=== PATIENT | male | born 1985 | race Caucasian/White ===

== ENCOUNTER 2016-12-22 10:14 | Inpatient (IN) | payer OTHER ==
[2016-12-22] MEDS ORDERED: NORMAL SALINE 10 ML SYRINGE FLUSH IVP PRN ×2 (10:20→13:09)
[2016-12-22] MEDS ORDERED: LORazepam 2 MG/1 ML VIAL IVP ONE ×2 (10:21→11:58)
[2016-12-22] MEDS ORDERED: Sodium Chloride 0.9% 1,000 ML, Magnesium Sulfate 2gm (Premix) 50 ML with Multivitamin I... IV ONE ×5 (10:22)
[2016-12-22] MEDS ORDERED: Sodium Chloride 0.9% 1,000 ML with Multivitamin Inj 10 ML, Thiamine Inj 100 MG, Folic A... IV ONE ×5 (10:30)
[2016-12-22 10:36] LABS: BASOPHILS # (AUTO) 0.09 10*3/UL; BASOPHILS % (AUTO) 0.7 % (0-1); EOSINOPHILS # (AUTO) 0.03 10*3/UL; EOSINOPHILS % (AUTO) 0.2 % (0-8); HEMATOCRIT 44.7 % (42.0-52.0); LYMPHOCYTES # (AUTO) 1.74 10*3/uL; MEAN CORPUSCULAR HEMOGLOBIN 33.2 PG (27-31); MEAN CORPUSCULAR HGB CONC 33.6 g/dL (33-37); MEAN CORPUSCULAR VOLUME 98.9 FL (80-90); MONOCYTES % (AUTO) 11.9 % (5-15); NEUTROPHILS # (AUTO) 9.98 10*3/UL; RED BLOOD COUNT 4.52 10^6/uL (4.70-6.10)
--- NOTE | 2016-12-22 10:39 | EKG ---
[address] [address] Measurements Intervals [place] Rate: 95 P: 63 NC: 140 QRS: 16 QRSD: 101 T: 46 QT: 381 QTc: 434 Interpretive Statements SINUS RHYTHM NONSPECIFIC T-WAVE ABNORMALITY No previous ECG available for comparison Electronically Signed On 12-22-16 11:01:53 MDT by Evans Davis [id number]
--- NOTE | 2016-12-22 10:40 | PDOC ---
Seizure HPI - General Chief Complaint: Drug / Alcohol Use &/or Abuse Stated Complaint: SEIZURE ACTIVITY, POSSIBLE ETOH WITHDRAWAL Date Seen by Provider: 12/22/16 Time Seen by Provider: 10:15 Source: POSITIVE: Patient, EMS Exam Limitations: POSITIVE: No limitations Nurse's Notes Reviewed & Considered: Yes EMS Report Reviewed & Considered: Verbal - History of Present Illness Initial Comments: The patient is a 31-year-old male who is brought to the emergency department by ambulance after having seizure activity at home. He apparently does have a history of alcohol abuse and admits to drinking fairly heavily recently. He reports he stopped drinking 2 days ago. This morning his dad apparently witnessed some tonic-clonic seizure activity at about 6 AM. He had another seizure just prior to EMS being called. On arrival EMS noted that the patient had bit the right side of his tongue. An IV was established and he did receive 8 mg of Zofran for nausea. On arrival here to the emergency room the patient is shaky, he is awake and alert and reports continued nausea. He denies any prior history of seizures. He does report that he has had some withdrawal symptoms when he has stopped drinking in the past. He denies any current headache or change in vision. He reports diffuse muscle aches as well as some muscle tenderness in his left shoulder. When EMS had arrived on scene he was mildly hypoxic with oxygen saturations in the upper 80s and he was placed on O2 per nasal cannula. He denies any prior medical history other than acid reflux and his only prescription medication is omeprazole. - Patient Home Medications Home Medications: Home Medications Bupropion HCl [Bupropion HCl Sr] 150 mg PO DAILY 12/22/16 Omeprazole [Prilosec] 40 mg PO DAILY 12/22/16 - Patient Allergies Allergies/Adverse Reactions: Allergies Allergy/AdvReac Type Severity Reaction Status Date / Time No Known Allergies Allergy Unverified 12/22/16 10:37 Past Medical History Past Medical History Reviewed: Other (please comment) (He states his only medical history is acid reflux.) ROS - Limitations ROS Limitations: No Limitations Constitution: DENIES: Chills, Fever Cardiovascular: DENIES: Chest Pain Respiratory: REPORTS: Denies Resp Symptoms Neurological: REPORTS: Seizure Activity, Other (Shaky). DENIES: Headache, Numbness, Weakness Gastrointestinal: REPORTS: Nausea, Vomitting. DENIES: Abdominal Pain Musculoskeletal: REPORTS: Denies MS Symptoms Eyes: REPORTS: Denies Symptoms ENT: REPORTS: Other (He bit the right side of his tongue, no active bleeding currently) Skin: DENIES: Rash Psychiatric: POSITIVE: Denies Psych Symptoms Seizure Exam - General Appearance General Appearance: POSITIVE: Anxious, Other (Very shaky) - HEENT HEENT: POSITIVE: Head Inspection Nml, Eyes Inspection Nml, Ears Inspection Nml, Other (The right side of his tongue has a bite laceration with no active bleeding, some mild swelling of the tongue noted) - Neck Neck: POSITIVE: Non Tender, Trachea Midline - Respiratory Respiratory: POSITIVE: Chest Non Tender, Breath Sounds Normal, No Respiratory Distress - Cardiovascular Cardiovascular: POSITIVE: Regular Rate and Rhythm, Heart Sounds Normal Peripheral Pulses: Dorsalis-pedis (R): 2+, Dorsalis-pedis (L): 2+ - Abdomen Abdomen: Soft: (All Quadrants), Denies Tenderness: (All Quadrants), No Distention: (All Quadrants) - Skin Skin: POSITIVE: Intact, No Rash - Extremities Extremity: Normal ROM: (All Extremities), Normal Inspection: (All Extremities) - Neuro / Psych Higher Functions: POSITIVE: Oriented x3, Speech Normal Sensorimotor: POSITIVE: No Motor Deficits, No Sensory Deficits, Other (No focal neurologic deficits, diffuse tremulousness worsened with movement) Seizure Progress - Results Reviewed by me Xrays/CTs/US Reviewed by me: Yes Discussed with Radiologist: Yes Radiology Findings: Portable chest x-ray done in the ER shows no obvious infiltrate or effusion, normal heart size per radiologist. CT scan of his head reveals no acute intra-abdominal finding, some cerebral atrophy which is more advanced for his age than usual per radiologist. Lab Results Reviewed: Yes Lab Results:: Laboratory Results 12/22/16 Range/Units 10:27 WBC 13.48 H (4.8-10.8) 10^3/uL RBC 4.52 L (4.70-6.10) 10^6/uL Hgb 15.0 (14.0-18.0) g/dL Hct 44.7 (42.0-52.0) % MCV 98.9 H (80-90) FL MCH 33.2 H (27-31) PG MCHC 33.6 (33-37) g/dL RDW Std Deviation 50.3 H (39-50) fL RDW Coeff of Mack 14.1 (11.5-14.5) % Plt Count 178 (140-350) 10*3/uL MPV 11.0 (7.4-12.2) FL Immature Gran % (Auto) 0.3 (0-5) % Neut % (Auto) 74.0 (50-80) % Lymph % (Auto) 12.9 (10-50) % [place] % (Auto) 11.9 (5-15) % Eos % (Auto) 0.2 (0-8) % Baso % (Auto) 0.7 (0-1) % Immature Gran # (Auto) 0.04 10*3/UL Neut # (Auto) 9.98 10*3/UL Lymph # (Auto) 1.74 10*3/uL [place] # (Auto) 1.60 H (0.3-0.8) 10*3/UL Eos # (Auto) 0.03 10*3/UL Baso # (Auto) 0.09 10*3/UL WBC Morphology Comment Normal morphology (NORM) Plt Morphology Comment Normal morphology (NORM) RBC Morph Comment Normal morphology (NORM) Sodium 145 (135-145) meq/L Potassium 3.0 L (3.8-5.2) meq/L Chloride 100 (98-112) meq/L Carbon Dioxide 16 L (23-33) meq/L Anion Gap 29 H (5-20) BUN 11 (7-22) mg/dL Creatinine 0.9 (0.70-1.50) mg/dL Estimated GFR > 60 (>60 ml/min/1.73m(2)) BUN/Creatinine Ratio 12.22 (6-20) Glucose 167 H (78-110) mg/dL Calculated Osmolality 302.0 H (267-292) mOsm/kg Calcium 9.9 (8.7-10.7) mg/dL Magnesium 1.1 L (1.6-2.4) mg/dL Total Bilirubin 1.8 H (0.3-1.2) mg/dL AST 326 H (21-57) IU/L ALT 173 H (21-72) IU/L Alkaline Phosphatase 118 (38-126) IU/L Total Creatine Kinase 362 H (55-170) IU/L Total Protein 8.9 H (6.1-8.0) g/dL Albumin 5.1 H (3.5-4.8) g/dL Globulin 3.8 (2.50-4.10) g/dL Albumin/Globulin Ratio 1.30 (1.3-2.0) mg/g Amylase 149 H (30-110) U/L Lipase 310 H (23-300) IU/L Serum Alcohol < 10 (0-10) mg/dL EKG Interpreted/Reviewed By Me:: Yes EKG Interpretation:: POSITIVE: Normal Sinus Rhythm, Normal Rate, Normal QRS, Normal ST/T - Patient's Progress MDM / ED Course: An IV had been established per EMS and he had already received 8 mg of Zofran prior to arrival. He was given Ativan 2 mg IV as well as a banana bag. He had no further seizure activity here in the emergency department. He had no further bleeding from the laceration to the right side of his tongue. His blood work reveals an elevated white count at 13,000 which is likely stress response. His electrolytes reveal a low potassium at 3.0 as well as a magnesium of 1.1. He is receiving 2 g of magnesium in the banana bag. He received a second dose of Ativan 2 mg IV after his head CT secondary to some increased shakiness and withdrawal symptoms. I did have a fairly long discussion with the patient's dad. He reports that he is a serious alcoholic and drinks more than what he admits. He states that he was in a 3 month treatment program a couple of years ago and relapsed immediately after his treatment. His dad reports that he has lost his job, his family and his car and is currently living with his mom. The patient's head CT does not show any acute abnormality. By history the patient has had 2 tonic-clonic seizures this morning which most likely represent alcohol withdrawal seizures. His electrolytes are out of balance and his amylase and lipase are also mildly elevated along with elevated liver enzymes. This most likely is secondary to alcohol abuse as well. At this time the patient will be admitted for further treatment. Dr. Bryan has agreed to admit the patient. Patient Care Time - Estimated PCT Patient Care Time (In Minutes): 40 Vital Signs - Recent Vital Signs Vital Signs: Vital Signs (Last 8 hours) Temp Pulse Pulse Resp BP BP Pulse Ox 12/22/16 12:16 97.3 F 91 20 139/95 12/22/16 10:20 97 F 105 H 105 H 20 120/95 120/95 96 - VS Reviewed Vital Signs Reviewed: Yes Discharge Clinical Impression: Alcohol abuse, Drug withdrawal seizure, Laceration of tongue, Hypokalemia, Hypomagnesemia, Elevated pancreatic enzyme, Elevated liver function tests Discharge Disposition: Admit to Inpatient Condition: Fair Date Decision to Admit to Inpatient: 12/22/16 Time Decision to Admit to Inpatient: 11:50
[2016-12-22 10:43] LABS: BLOOD UREA NITROGEN 11 mg/dL (7-22); BUN/CREATININE RATIO 12.22 (6-20); CALCIUM 9.9 mg/dL (8.7-10.7); EST GLOMERULAR FILTRATION > 60 (>60 ml/min/1.73m(2)); MAGNESIUM 1.1 mg/dL (1.6-2.4); SERUM ALBUMIN 5.1 g/dL (3.5-4.8)
[2016-12-22 10:47] LABS: PLATELET MORPHOLOGY COMMENT NORMAL MORPHOLOGY (NORM); RBC MORPHOLOGY COMMENT NORMAL MORPHOLOGY (NORM); WBC MORPHOLOGY COMMENT NORMAL MORPHOLOGY (NORM)
[2016-12-22 11:02] LABS: LIPASE 310 IU/L (23-300)
[2016-12-22 12:15] LABS: AMPHETAMINE SCREEN NEGATIVE (NEG); CANNABINOID SCREEN,URINE NEGATIVE (NEG); COCAINE SCREEN NEGATIVE (NEG); METHADONE URINE SCREEN NEGATIVE (NEG); METHAMPHETAMINES SCREEN,URINE NEGATIVE (NEG); OPIATE SCREEN,URINE NEGATIVE (NEG); URINE SAMPLE TYPE CLEAN CATCH URINE; URINE SPECIFIC GRAVITY - MAN 1.025
[2016-12-22] MEDS: Sodium Chloride 0.9% 1,000 ML PRIMARY IV ONE ×2 (12:20→13:51)
--- NOTE | 2016-12-22 12:44 | DI ---
CT HEAD SCAN WITHOUT IV CONTRAST, 12/22/2016 10:21 AM : Clinical History: Seizure. Previous Exam: None at this facility. Scans are obtained from the foramen magnum to the vertex without IV contrast. The fourth ventricle is of normal size, shape, position and contour. The third and lateral ventricles are mildly dilated but are otherwise normal. The ventricular dilatation is advanced for the patient' s stated age of 31 years. There are no abnormal areas of increased or decreased density. There is cer ebellar and cerebral atrophy that is advanced for the patient's stated age of 31 years. No brainstem atrophy is appreciated. There are no extracerebral mantles or shift of the midline structures. Bone w indow evaluation is normal. There is a small air-fluid level in the right maxillary sinus and this ma y represent acute sinusitis. READIN. No acute hemorrhagic or bland infarct or mass is identified. 2. There is mild ventriculomegaly and moderate cerebellar and cerebral atrophy, and these findings a re advanced for the patient's stated age of 31 years. There is no appreciable brainstem atrophy to rojas ggest chronic alcohol usage. 3. There is an air-fluid level in the right maxillary sinus that may represent acute sinusitis.
--- NOTE | 2016-12-22 12:54 | DI ---
AP CHEST X-RAY, 12/22/2016 10:30 AM : Clinical History: Seizures. Hypoxia. Previous Exam: None at this facility. There is no acute soft tissue or bony abnormality. Heart size is normal. Lungs are clear. Mediastinal structures are normal. There are no pulmonary nodules. Reading: Normal chest x-ray.
[2016-12-22] MEDS ORDERED: LIDOCAINE W/ SODIUM BICARB 0.5 ML SYR SUBD PRN (13:09)
[2016-12-22] MEDS ORDERED: ONDANSETRON 4 MG/2 ML VIAL IV PRN (13:09)
[2016-12-22] MEDS ORDERED: MAGNESIUM 400 MG/5 ML - 30 ML (MILK OF MAGNESIA) PO PRN (13:09)
[2016-12-22] MEDS ORDERED: MAG HYDROX/AL HYDROX/SIMETH 30 ML SUSP PO PRN (13:09)
[2016-12-22] MEDS ORDERED: Loperamide Tab 2 MG TABLET PO PRN (13:09)
[2016-12-22] MEDS: Diazepam Inj (ETOH withdrawal)10 MG/2 ML CARPUJECT IVP PRN ×4 (13:39→23:20)
[2016-12-22] MEDS ORDERED: DIAZEPAM 10 MG/2 ML (5 MG/1 ML) CARPUJECT IVP ONE (14:03)
--- NOTE | 2016-12-22 14:34 | PDOC ---
History and Physical - History of Present Illness Date and Time of Service: 12/22/2016, 1430 Chief Complaint: Alcohol withdrawal seizure History of Present Illness: This is a 31-year-old male that apparently has a significant problem with alcohol use/abuse and he came in having quit taking 2 days ago with 2 witnessed tonic-clonic alcohol withdrawal seizures. No family is available to collaborate the history today, and this is in discussion with the emergency room physician. He bit his tongue however. He is having tremors and tachycardia and hypertension notably on admission. He's never been through withdrawal before. He states that he drinks vodka most frequently out of his beverage choices. No nausea or vomiting or chest pain. He does complain of some throat pain over the past couple of days. He received a couple doses of Ativan in the emergency room and did very well with those, and is now being admitted in the setting of alcohol withdrawal seizure. No hallucinations at this point. Past Medical History Medical History: 1. Heavy alcohol use/probable abuse Surgical History: 1. Appendectomy Pertinent Family History: No family history of heart disease or diabetes. Past Social History: Smokes, drinks, has 2 children and is . Works as a [employer]. Tobacco Use: Current Every Day Smoker Substance Use Type: None Alcohol Use: Heavy Medication / Allergies Home Medications: Home Medications Medication Instructions Recorded Confirmed Type Bupropion HCl [Bupropion HCl Sr] 150 mg PO DAILY 12/22/16 12/22/16 History Omeprazole [Prilosec] 40 mg PO DAILY 12/22/16 12/22/16 History Allergies/Adverse Reactions: Allergies Allergy/AdvReac Type Severity Reaction Status Date / Time No Known Allergies Allergy Unverified 12/22/16 10:37 Review of Systems - Review of Systems All Systems: Reviewed & No Additional Complaints Except as Stated (I did a 12 review systems and other than that discussed in history present illness and that noted below it was negative.) - Ear/Nose Exam Ear/Nose Exam: REPORTS: Other (Complains of sore throat. Complains of neck swelling on his right side) - Mouth/Throat Mouth/Throat Exam: REPORTS: Sore Throat, Other (Denies dental pain) Exam - Vitals Vital Signs: Vital Signs Temperature 97.8 F Temperature Source Temporal Artery Scan Pulse Rate [Pulse Oximeter 104 Right] Pulse Rate 91 Respiratory Rate 20 Blood Pressure [Right Arm] 146/99 Blood Pressure 139/95 Pulse Ox 96 Oxygen Flow Rate 2 Oxygen Delivery Method Nasal Cannula Height 6 ft 1 in Weight 177 lb 12.8 oz - General General Appearance: POSITIVE: Cooperative, Disheveled Additional General Exam Details: Tachycardic, generalized tremors. - Head Head Exam: POSITIVE: Normal Inspection, Normocephalic, Atraumatic - Eye Eye Exam: POSITIVE: No Scleral Icterus - ENT ENT Exam: POSITIVE: Mucous Membranes Dry - Neck Neck Exam: POSITIVE: Normal Inspection, No Tenderness, Lymphadenopathy ( Possible lymphadenopathy on the right), No Thyromegaly - Respiratory Respiratory Exam: POSITIVE: Clear to Auscultation - Bilaterally, Breathing Non Labored, Normal to Percussion and Palpation - Cardiovascular Cardiovascular Exam: POSITIVE: No Murmur, No Clicks, No Gallops, No Rubs, Tachycardia, No JVD - GI/Abdominal GI/Abdominal Exam: POSITIVE: Normal Bowel Sounds, Non Tender, Non Distended, Soft - Rectal Rectal Exam: POSITIVE: Deferred - External Exam: POSITIVE: Deferred Exam: POSITIVE: Deferred - Extremities Extremities Exam: POSITIVE: No Clubbing Present, No Edema Present, No Cyanosis Present - Back Back Exam: POSITIVE: Normal Inspection, No CVA Tenderness - Neurological Neurological Exam: POSITIVE: Alert, No Facial Droop, Speech Intact / Clear, Moves All Extremities Equally Additional Neurological Exam Details: Tremors bilaterally - Psychiatric Psychiatric Exam: POSITIVE: Anxious, Agitated Results - Labs CBC and BMP: 12/22/16 10:27 12/22/16 10:27 Labs - Last 24 Hours: Laboratory Results 12/22/16 Range/Units 12:00 Ur Collection Type Clean catch urine U Specif Grav (Refrac) 1.025 Urine Opiates Screen Negative (NEG) Ur Buprenorphine Negative (NEG) Ur Oxycodone Screen Negative (NEG) Urine Methadone Screen Negative (NEG) Ur Propoxyphene Screen Negative (NEG) Barbiturate Screen Negative (NEG) U Tricyclic Antidepress Negative (NEG) Phencyclidine Screen Negative (NEG) Amphetamines Screen Negative (NEG) U Methamphetamines Scrn Negative (NEG) Benzodiazepines Screen Negative (NEG) Cocaine Screen Negative (NEG) U Marijuana (THC) Screen Negative (NEG) Laboratory Results 12/22/16 12/22/16 Range/Units 10:27 12:00 WBC 13.48 H (4.8-10.8) 10^3/uL RBC 4.52 L (4.70-6.10) 10^6/uL Hgb 15.0 (14.0-18.0) g/dL Hct 44.7 (42.0-52.0) % MCV 98.9 H (80-90) FL MCH 33.2 H (27-31) PG MCHC 33.6 (33-37) g/dL RDW Std Deviation 50.3 H (39-50) fL RDW Coeff of Mack 14.1 (11.5-14.5) % Plt Count 178 (140-350) 10*3/uL MPV 11.0 (7.4-12.2) FL Immature Gran % (Auto) 0.3 (0-5) % Neut % (Auto) 74.0 (50-80) % Lymph % (Auto) 12.9 (10-50) % [place] % (Auto) 11.9 (5-15) % Eos % (Auto) 0.2 (0-8) % Baso % (Auto) 0.7 (0-1) % Immature Gran # (Auto) 0.04 10*3/UL Neut # (Auto) 9.98 10*3/UL Lymph # (Auto) 1.74 10*3/uL [place] # (Auto) 1.60 H (0.3-0.8) 10*3/UL Eos # (Auto) 0.03 10*3/UL Baso # (Auto) 0.09 10*3/UL WBC Morphology Comment Normal morphology (NORM) Plt Morphology Comment Normal morphology (NORM) RBC Morph Comment Normal morphology (NORM) Sodium 145 (135-145) meq/L Potassium 3.0 L (3.8-5.2) meq/L Chloride 100 (98-112) meq/L Carbon Dioxide 16 L (23-33) meq/L Anion Gap 29 H (5-20) BUN 11 (7-22) mg/dL Creatinine 0.9 (0.70-1.50) mg/dL Estimated GFR > 60 (>60 ml/min/1.73m(2)) BUN/Creatinine Ratio 12.22 (6-20) Glucose 167 H (78-110) mg/dL Calculated Osmolality 302.0 H (267-292) mOsm/kg Calcium 9.9 (8.7-10.7) mg/dL Magnesium 1.1 L (1.6-2.4) mg/dL Total Bilirubin 1.8 H (0.3-1.2) mg/dL AST 326 H (21-57) IU/L ALT 173 H (21-72) IU/L Alkaline Phosphatase 118 (38-126) IU/L Total Creatine Kinase 362 H (55-170) IU/L Total Protein 8.9 H (6.1-8.0) g/dL Albumin 5.1 H (3.5-4.8) g/dL Globulin 3.8 (2.50-4.10) g/dL Albumin/Globulin Ratio 1.30 (1.3-2.0) mg/g Amylase 149 H (30-110) U/L Lipase 310 H (23-300) IU/L Ur Collection Type Clean catch urine U Specif Grav (Refrac) 1.025 Urine Opiates Screen Negative (NEG) Ur Buprenorphine Negative (NEG) Ur Oxycodone Screen Negative (NEG) Urine Methadone Screen Negative (NEG) Ur Propoxyphene Screen Negative (NEG) Barbiturate Screen Negative (NEG) U Tricyclic Antidepress Negative (NEG) Phencyclidine Screen Negative (NEG) Amphetamines Screen Negative (NEG) U Methamphetamines Scrn Negative (NEG) Benzodiazepines Screen Negative (NEG) Cocaine Screen Negative (NEG) U Marijuana (THC) Screen Negative (NEG) Serum Alcohol < 10 (0-10) mg/dL - EKG Data -: EKG Interpreted by Me Rate: Normal EKG Shows Normal: Sinus Rhythm - Imaging Status: Image Reviewed by Me (Chest x-ray, negative on my view. Head CT scan appeared negative for an acute bleed. Radiologist felt it might be significant for ventriculomegaly) Assessment and Plan - Patient Problems (1) Alcohol withdrawal seizure Current Visit: Yes Status: Acute Qualifiers: Complication of substance-induced condition: uncomplicated Qualified Description: Alcohol withdrawal seizure, uncomplicated Qualifier Code(s): (F10.230) Alcohol dependence with withdrawal, uncomplicated (2) Alcohol withdrawal syndrome Current Visit: Yes Status: Acute (3) Alcohol abuse Current Visit: Yes Status: Acute (4) Elevated liver function tests Current Visit: Yes Status: Acute (5) Hypokalemia Current Visit: Yes Status: Acute (6) Hypomagnesemia Current Visit: Yes Status: Acute (7) Pharyngitis Current Visit: Yes Status: Acute Qualifiers: Pharyngitis/tonsillitis etiology: unspecified etiology Qualified Description: Pharyngitis, unspecified etiology Qualifier Code(s): (J02.9) Acute pharyngitis, unspecified - Assessment / Plan Additional Assessment/Plan Details: Admit the patient. CIWA protocol, Valium, and Librium. Check labs tomorrow. Replace magnesium and potassium. Hopefully we'll be able to get a director of social work consult for [employer] life as well and work towards either intensive outpatient therapy or a residential therapy for this patient. Seizure precautions. If The patient gets worse, develops hallucinations, I may consider Precedex therapy. Check for strep throat and also get a CT scan of the neck to make sure there is no evidence of infection or other issues. Photo / Body Diagrams - Uploaded Photos Uploaded Photos:
[2016-12-22] MEDS ORDERED: Magnesium Sulfate 2gm (Premix) 2 GM in Premix 1 BAG IV ONE (14:36)
[2016-12-22] MEDS ORDERED: Potassium Chloride 20 mEq 20 MEQ in Premix 1 BAG IV ONE (14:36)
[2016-12-22] MEDS: ChlordiazePOXIDE 25mg Cap (ETOH withdrawal) PO SCH ×2 (15:42→21:00)
[2016-12-22] MEDS: ACETAMINOPHEN 500 MG TABLET PO PRN ×2 (15:42→23:57)
[2016-12-22] MEDS: MAGNESIUM OXIDE 400 MG TABLET PO SCH (21:00)
[2016-12-23] MEDS: Diazepam Inj (ETOH withdrawal)10 MG/2 ML CARPUJECT IVP PRN ×4 (03:01→23:28)
[2016-12-23 05:10] LABS: BASOPHILS # (AUTO) 0.03 10*3/UL; BASOPHILS % (AUTO) 0.4 % (0-1); EOSINOPHILS # (AUTO) 0.04 10*3/UL; EOSINOPHILS % (AUTO) 0.6 % (0-8); HEMATOCRIT 38.6 % (42.0-52.0); HEMOGLOBIN 12.9 g/dL (14.0-18.0); LYMPHOCYTES # (AUTO) 1.08 10*3/uL; MEAN CORPUSCULAR HEMOGLOBIN 33.1 PG (27-31); MEAN CORPUSCULAR HGB CONC 33.4 g/dL (33-37); MEAN PLATELET VOLUME 10.7 FL (7.4-12.2); MONOCYTES % (AUTO) 13.4 % (5-15); NEUTROPHILS # (AUTO) 4.66 10*3/UL; NEUTROPHILS % (AUTO) 69.4 % (50-80)
[2016-12-23 05:27] LABS: PLATELET MORPHOLOGY COMMENT NORMAL MORPHOLOGY (NORM); RBC MORPHOLOGY COMMENT NORMAL MORPHOLOGY (NORM); WBC MORPHOLOGY COMMENT NORMAL MORPHOLOGY (NORM)
[2016-12-23 05:58] LABS: BLOOD UREA NITROGEN 7 mg/dL (7-22); CALCIUM 8.2 mg/dL (8.7-10.7); EST GLOMERULAR FILTRATION > 60 (>60 ml/min/1.73m(2)); LIPASE 196 IU/L (23-300); MAGNESIUM 2.2 mg/dL (1.6-2.4); PHOSPHORUS 2.7 mg/dl (2.4-4.3); SERUM ALBUMIN 3.9 g/dL (3.5-4.8)
[2016-12-23] MEDS ORDERED: OMEPRAZOLE 20 MG CAPSULE PO SCH (07:00)
--- NOTE | 2016-12-23 07:09 | DI ---
CT SCAN OF THE NECK WITH IV CONTRAST, 12/22/2016 2:37 PM : Clinical History: Right-sided neck pain. Previous Exam: None at this facility. Scans are obtained from below the sternal notch to the petrous pyramids with IV contrast. Sagittal an d coronal images are generated. 95 ml of Isovue 300 was injected IV. The cervical vertebral bodies are of normal height and size. The disc spaces are normal. The carotid and vertebral arteries are normal and the left vertebral artery is the dominant vessel. There are no soft tissue masses on either side. No lymphadenopathy is identified. The thyroid gland, the submandib ular glands, and the parotid glands are normal. The visualized portions of the upper lobes are also n ormal. READING: Normal CT neck scan with IV contrast.
[2016-12-23] MEDS ORDERED: buPROPion XL Tab 150 MG TAB PO SCH (09:00)
[2016-12-23] MEDS ORDERED: Thiamine Tab 100 MG TAB PO SCH (09:00)
[2016-12-23] MEDS: MAGNESIUM OXIDE 400 MG TABLET PO SCH ×2 (09:19→20:41)
[2016-12-23] MEDS: ChlordiazePOXIDE 25mg Cap (ETOH withdrawal) PO SCH ×3 (09:19→20:41)
[2016-12-23] MEDS ORDERED: POTASSIUM CHLORIDE 20 MEQ TAB PO ONE (10:23)
--- NOTE | 2016-12-23 13:53 | PDOC(PROG) ---
Date and Time of Service: 12/23/2016, 1345 Interval History: Patient complains of right mouth pain, no chest pain and no shortness of breath. No nausea or vomiting. Still quite anxious, agitated, and has some tremors. Objective : Data - Labs CBC and BMP: 12/23/16 04:59 12/23/16 04:59 Labs - Last 24 Hours: Laboratory Results 12/23/16 Range/Units 04:59 WBC 6.72 (4.8-10.8) 10^3/uL RBC 3.90 L (4.70-6.10) 10^6/uL Hgb 12.9 L (14.0-18.0) g/dL Hct 38.6 L (42.0-52.0) % MCV 99.0 H (80-90) FL MCH 33.1 H (27-31) PG MCHC 33.4 (33-37) g/dL RDW Std Deviation 48.4 (39-50) fL RDW Coeff of Mack 13.6 (11.5-14.5) % Plt Count 114 L (140-350) 10*3/uL MPV 10.7 (7.4-12.2) FL Immature Gran % (Auto) 0.1 (0-5) % Neut % (Auto) 69.4 (50-80) % Lymph % (Auto) 16.1 (10-50) % [place] % (Auto) 13.4 (5-15) % Eos % (Auto) 0.6 (0-8) % Baso % (Auto) 0.4 (0-1) % Immature Gran # (Auto) 0.01 10*3/UL Neut # (Auto) 4.66 10*3/UL Lymph # (Auto) 1.08 10*3/uL [place] # (Auto) 0.90 H (0.3-0.8) 10*3/UL Eos # (Auto) 0.04 10*3/UL Baso # (Auto) 0.03 10*3/UL WBC Morphology Comment Normal morphology (NORM) Plt Morphology Comment Normal morphology (NORM) RBC Morph Comment Normal morphology (NORM) Sodium 139 (135-145) meq/L Potassium 2.7 L (3.8-5.2) meq/L Chloride 104 (98-112) meq/L Carbon Dioxide 25 (23-33) meq/L Anion Gap 10 (5-20) BUN 7 (7-22) mg/dL Creatinine 0.7 (0.70-1.50) mg/dL Estimated GFR > 60 (>60 ml/min/1.73m(2)) BUN/Creatinine Ratio 10.00 (6-20) Glucose 110 (78-110) mg/dL Calculated Osmolality 286.0 (267-292) mOsm/kg Calcium 8.2 L (8.7-10.7) mg/dL Phosphorus 2.7 (2.4-4.3) mg/dl Magnesium 2.2 (1.6-2.4) mg/dL Total Bilirubin 1.3 H (0.3-1.2) mg/dL AST 154 H (21-57) IU/L ALT 121 H (21-72) IU/L Alkaline Phosphatase 80 (38-126) IU/L Total Protein 7.0 (6.1-8.0) g/dL Albumin 3.9 (3.5-4.8) g/dL Globulin 3.1 (2.50-4.10) g/dL Albumin/Globulin Ratio 1.20 L (1.3-2.0) mg/g Lipase 196 (23-300) IU/L Objective : Exam - General General Appearance: No Acute Distress, Cooperative Additional General Exam Details: Vital Signs - Last Taken Temperature 98.8 F 12/23/16 09:00 Pulse Rate 94 12/23/16 09:00 Respiratory Rate 12 12/23/16 09:00 Blood Pressure 138/95 12/23/16 09:00 Pulse Ox 95 12/23/16 08:46 - Eye Eye Exam: No Scleral Icterus - ENT Additonal ENT Exam Details: Tongue is lacerated on the right side, it looks as if a portion of the tongue muscle has actually been bitten completely off laterally, but it is not actively bleeding, does not appear to be obstructive. Some swelling on that lateral side on the right. - Neck Neck Exam: Normal Inspection, No Thyromegaly - Respiratory Respiratory Exam: Clear to Auscultation - Bilaterally, Breathing Non Labored - Cardiovascular Cardiovascular Exam: RRR, No Murmur, No Clicks, No Gallops, No Rubs, No JVD - GI/Abdominal GI/Abdominal Exam: Normal Bowel Sounds, Non Tender, Non Distended, Soft - Extremities Extremities Exam: No Clubbing Present, No Edema Present, No Cyanosis Present - Neurological Neurological Exam: Alert, Oriented x 3, No Facial Droop, Speech Intact / Clear, Moves All Extremities Equally Assessment and Plan - Patient Problems (1) Alcohol withdrawal syndrome Current Visit: Yes Status: Acute Comment: Had seizure as part of his alcohol withdrawal syndrome. Not hallucinating. Qualifiers: Complication of substance-induced condition: with unspecified complication Qualified Description: Alcohol withdrawal syndrome, with unspecified complication Qualifier Code(s): (F10.239) Alcohol dependence with withdrawal, unspecified (2) Alcohol withdrawal seizure Current Visit: Yes Status: Acute Qualifiers: Complication of substance-induced condition: uncomplicated Qualified Description: Alcohol withdrawal seizure, uncomplicated Qualifier Code(s): (F10.230) Alcohol dependence with withdrawal, uncomplicated (3) Alcohol abuse Current Visit: Yes Status: Acute (4) Elevated liver function tests Current Visit: Yes Status: Acute (5) Hypokalemia Current Visit: Yes Status: Acute (6) Hypomagnesemia Current Visit: Yes Status: Acute (7) Pharyngitis Current Visit: Yes Status: Acute Qualifiers: Pharyngitis/tonsillitis etiology: unspecified etiology Qualified Description: Pharyngitis, unspecified etiology Qualifier Code(s): (J02.9) Acute pharyngitis, unspecified - Assessment / Plan Additional Assessment/Plan Details: Continue CIWA protocol and Valium and Librium. Replace potassium. IV fluids. May benefit from some chlorhexidine rinses. I'll order those. Seizure precautions. Photo / Body Diagrams - Uploaded Photos Uploaded Photos:
[2016-12-23] MEDS: ACETAMINOPHEN 500 MG TABLET PO PRN (19:46)
[2016-12-23] MEDS ORDERED: POTASSIUM CHLORIDE 20 MEQ TAB PO SCH (21:00)
[2016-12-24] MEDS: Diazepam Inj (ETOH withdrawal)10 MG/2 ML CARPUJECT IVP PRN ×9 (01:28→22:38)
[2016-12-24 05:41] LABS: HEMATOCRIT 38.2 % (42.0-52.0); HEMOGLOBIN 12.3 g/dL (14.0-18.0); MEAN CORPUSCULAR HEMOGLOBIN 32.5 PG (27-31); MEAN CORPUSCULAR HGB CONC 32.2 g/dL (33-37); MEAN CORPUSCULAR VOLUME 101.1 FL (80-90); MEAN PLATELET VOLUME 11.1 FL (7.4-12.2); RED BLOOD COUNT 3.78 10^6/uL (4.70-6.10)
[2016-12-24 05:49] LABS: BLOOD UREA NITROGEN 6 mg/dL (7-22); BUN/CREATININE RATIO 8.57 (6-20); CALCIUM 8.8 mg/dL (8.7-10.7); EST GLOMERULAR FILTRATION > 60 (>60 ml/min/1.73m(2)); MAGNESIUM 1.8 mg/dL (1.6-2.4); SERUM ALBUMIN 4.1 g/dL (3.5-4.8)
[2016-12-24] MEDS ORDERED: DIAZEPAM 10 MG/2 ML (5 MG/1 ML) CARPUJECT IVP ONE ×2 (06:13→06:34)
[2016-12-24] MEDS ORDERED: Dexmedetomidine/NS 100 ML IV ONE (06:27)
[2016-12-24] MEDS ORDERED: MAGNESIUM 400 MG/5 ML - 30 ML (MILK OF MAGNESIA) PO PRN (06:34)
[2016-12-24] MEDS ORDERED: Loperamide Tab 2 MG TABLET PO PRN (06:34)
[2016-12-24] MEDS ORDERED: ONDANSETRON 4 MG/2 ML VIAL IV PRN (06:34)
[2016-12-24] MEDS ORDERED: LIDOCAINE W/ SODIUM BICARB 0.5 ML SYR SUBD PRN (06:34)
[2016-12-24] MEDS ORDERED: DIAZEPAM 10 MG/2 ML (5 MG/1 ML) CARPUJECT IVP PRN ×2 (06:34→13:25)
[2016-12-24] MEDS ORDERED: MAG HYDROX/AL HYDROX/SIMETH 30 ML SUSP PO PRN (06:34)
[2016-12-24] MEDS: Dexmedetomidine/NS 100 ML IV SCH ×10 (06:44→16:34)
[2016-12-24] MEDS: OMEPRAZOLE 20 MG CAPSULE PO SCH (07:08)
[2016-12-24] MEDS: NORMAL SALINE 10 ML SYRINGE FLUSH IVP PRN ×2 (07:57→22:40)
[2016-12-24] MEDS: Thiamine Tab 100 MG TAB PO SCH (09:01)
[2016-12-24] MEDS: POTASSIUM CHLORIDE 20 MEQ TAB PO SCH ×2 (09:02→21:15)
[2016-12-24] MEDS: ChlordiazePOXIDE 25mg Cap (ETOH withdrawal) PO SCH ×3 (09:03→20:19)
[2016-12-24] MEDS: MAGNESIUM OXIDE 400 MG TABLET PO SCH ×2 (09:04→20:21)
[2016-12-24] MEDS: buPROPion XL Tab 150 MG TAB PO SCH (09:04)
[2016-12-24] MEDS ORDERED: Sodium Chloride 0.9% 500 ML ONE (09:13)
--- NOTE | 2016-12-24 13:25 | PDOC(PROG) ---
Date and Time of Service: 12/24/2016, 1325 Interval History: Morning, was hallucinating, did not know where he was was disoriented and agitated. We started Precedex and gave more Valium. Patient was resting at the time of my examination. Objective : Data - Labs CBC and BMP: 12/24/16 04:20 12/24/16 04:20 Labs - Last 24 Hours: Laboratory Results 12/24/16 Range/Units 04:20 WBC 6.01 (4.8-10.8) 10^3/uL RBC 3.78 L (4.70-6.10) 10^6/uL Hgb 12.3 L (14.0-18.0) g/dL Hct 38.2 L (42.0-52.0) % MCV 101.1 H (80-90) FL MCH 32.5 H (27-31) PG MCHC 32.2 L (33-37) g/dL RDW Std Deviation 47.9 (39-50) fL RDW Coeff of Mack 13.3 (11.5-14.5) % Plt Count 126 L (140-350) 10*3/uL MPV 11.1 (7.4-12.2) FL Sodium 142 (135-145) meq/L Potassium 3.6 L (3.8-5.2) meq/L Chloride 107 (98-112) meq/L Carbon Dioxide 23 (23-33) meq/L Anion Gap 12 (5-20) BUN 6 L (7-22) mg/dL Creatinine 0.7 (0.70-1.50) mg/dL Estimated GFR > 60 (>60 ml/min/1.73m(2)) BUN/Creatinine Ratio 8.57 (6-20) Glucose 88 (78-110) mg/dL Calculated Osmolality 290.0 (267-292) mOsm/kg Calcium 8.8 (8.7-10.7) mg/dL Magnesium 1.8 (1.6-2.4) mg/dL Total Bilirubin 1.0 (0.3-1.2) mg/dL AST 99 H (21-57) IU/L ALT 96 H (21-72) IU/L Alkaline Phosphatase 89 (38-126) IU/L Total Protein 7.2 (6.1-8.0) g/dL Albumin 4.1 (3.5-4.8) g/dL Globulin 3.2 (2.50-4.10) g/dL Albumin/Globulin Ratio 1.20 L (1.3-2.0) mg/g Objective : Exam - General General Appearance: Cooperative Additional General Exam Details: Sleeping on examination. - Respiratory Respiratory Exam: Clear to Auscultation - Bilaterally, Breathing Non Labored - Cardiovascular Cardiovascular Exam: RRR, No Murmur, No Clicks, No Gallops, No Rubs, JVD - GI/Abdominal GI/Abdominal Exam: Normal Bowel Sounds, Non Tender, Non Distended, Soft - Neurological Neurological Exam: No Facial Droop, Speech Intact / Clear, Moves All Extremities Equally Additional Neurological Exam Details: Resting on exam. Assessment and Plan - Patient Problems (1) Alcohol withdrawal syndrome Current Visit: Yes Status: Acute Qualifiers: Complication of substance-induced condition: with delirium Qualified Description: Alcohol withdrawal syndrome, with delirium Qualifier Code(s) : (F10.231) Alcohol dependence with withdrawal delirium (2) Alcohol withdrawal seizure Current Visit: Yes Status: Acute Qualifiers: Complication of substance-induced condition: uncomplicated Qualified Description: Alcohol withdrawal seizure, uncomplicated Qualifier Code(s): (F10.230) Alcohol dependence with withdrawal, uncomplicated (3) Alcohol abuse Current Visit: Yes Status: Acute (4) Elevated liver function tests Current Visit: Yes Status: Acute (5) Hypokalemia Current Visit: Yes Status: Acute (6) Hypomagnesemia Current Visit: Yes Status: Acute (7) Pharyngitis Current Visit: Yes Status: Resolved Qualifiers: Pharyngitis/tonsillitis etiology: unspecified etiology Qualified Description: Pharyngitis, unspecified etiology Qualifier Code(s): (J02.9) Acute pharyngitis, unspecified (8) Tongue laceration Current Visit: Yes Status: Acute Qualifiers: Encounter type: initial encounter Qualified Description: Laceration of tongue, initial encounter Qualifier Code(s): (S01.512A) Laceration without foreign body of oral cavity, initial encounter - Assessment / Plan Additional Assessment/Plan Details: Overall, the patient is developing worsened alcohol withdrawal, consistent with delirium tremens. Precedex was started, Valium is increased, in CIWA protocol is still taking place. I transferred the patient to the ICU status. Replace potassium Eventually to ENT for outpatient evaluation for tongue laceration. Discussed with the family in depth yesterday regarding alcohol cessation, counseling options, Alcoholics Anonymous, and risks of continued alcohol abuse. Try to minimize stimuli for the patient today given his worsening withdrawal symptoms.
[2016-12-24] MEDS ORDERED: LIDOCAINE HCL 5 ML JEL TOPICAL ONE (14:28)
[2016-12-24] MEDS ORDERED: LIDOCAINE HCL 2 % 10 ML JELLY URO-JECT TOPICAL ONE (14:33)
[2016-12-24] MEDS ORDERED: CloNIDine Tab 0.1 MG TABLET PO ONE (15:43)
[2016-12-24] MEDS ORDERED: CloNIDine Tab 0.1 MG TABLET PO PRN (15:43)
[2016-12-24] MEDS: ACETAMINOPHEN 500 MG TABLET PO PRN (20:20)
[2016-12-24] MEDS ORDERED: Potassium Chloride 20 mEq 20 MEQ in Premix 1 BAG IV ONE (21:55)
[2016-12-25] MEDS: Diazepam Inj (ETOH withdrawal)10 MG/2 ML CARPUJECT IVP PRN ×4 (01:02→08:59)
[2016-12-25] MEDS: NORMAL SALINE 10 ML SYRINGE FLUSH IVP PRN ×3 (01:03→09:01)
[2016-12-25] MEDS: LABETALOL 20 MG/4 ML (5 MG/1 ML) SYRINGE IVP PRN ×2 (01:03→04:55)
[2016-12-25] MEDS: DIAZEPAM 10 MG/2 ML (5 MG/1 ML) CARPUJECT IVP PRN ×3 (02:50→09:58)
[2016-12-25] MEDS ORDERED: LORazepam 2 MG/1 ML VIAL IVP PRN ×2 (03:18→03:33)
[2016-12-25 06:31] LABS: RED BLOOD COUNT 4.06 10^6/uL (4.70-6.10)
[2016-12-25 06:32] LABS: HEMATOCRIT 40.4 % (42.0-52.0); HEMOGLOBIN 13.6 g/dL (14.0-18.0); MEAN CORPUSCULAR HEMOGLOBIN 33.5 PG (27-31); MEAN CORPUSCULAR HGB CONC 33.7 g/dL (33-37); MEAN CORPUSCULAR VOLUME 99.5 FL (80-90); MEAN PLATELET VOLUME 10.8 FL (7.4-12.2)
[2016-12-25 06:33] LABS: BLOOD UREA NITROGEN 7 mg/dL (7-22); BUN/CREATININE RATIO 8.75 (6-20); CALCIUM 9.5 mg/dL (8.7-10.7); EST GLOMERULAR FILTRATION > 60 (>60 ml/min/1.73m(2)); MAGNESIUM 1.4 mg/dL (1.6-2.4); SERUM ALBUMIN 4.3 g/dL (3.5-4.8)
[2016-12-25] MEDS ORDERED: Multivitamin Tab 1 TAB PO SCH (09:00)
[2016-12-25] MEDS: OMEPRAZOLE 20 MG CAPSULE PO SCH (09:02)
[2016-12-25] MEDS: ChlordiazePOXIDE 25mg Cap (ETOH withdrawal) PO SCH ×3 (09:02→23:21)
[2016-12-25] MEDS: POTASSIUM CHLORIDE 20 MEQ TAB PO SCH ×2 (09:02→23:20)
[2016-12-25] MEDS: Multivitamin Tab 1 TAB PO SCH (09:02)
[2016-12-25] MEDS: MAGNESIUM OXIDE 400 MG TABLET PO SCH ×2 (09:03→23:21)
[2016-12-25] MEDS: buPROPion XL Tab 150 MG TAB PO SCH (09:03)
[2016-12-25] MEDS: Thiamine Tab 100 MG TAB PO SCH (09:03)
[2016-12-25] MEDS: Dexmedetomidine/NS 100 ML IV SCH ×4 (09:09→20:10)
[2016-12-25] MEDS ORDERED: Magnesium Sulfate 4gm (Premix) 4 GM in Premix 1 BAG IV ONE (11:06)
--- NOTE | 2016-12-25 13:58 | PDOC(PROG) ---
Date and Time of Service: 12/25/2016, 1355 Interval History: Had a few moments of lucidity this morning, otherwise resting much better today , a little less agitation but still is scoring high on CIWA scores at times. Objective : Data - Labs CBC and BMP: 12/25/16 04:15 12/25/16 04:15 Labs - Last 24 Hours: Laboratory Results 12/25/16 Range/Units 04:15 WBC 6.45 (4.8-10.8) 10^3/uL RBC 4.06 L (4.70-6.10) 10^6/uL Hgb 13.6 L (14.0-18.0) g/dL Hct 40.4 L (42.0-52.0) % MCV 99.5 H (80-90) FL MCH 33.5 H (27-31) PG MCHC 33.7 (33-37) g/dL RDW Std Deviation 45.2 (39-50) fL RDW Coeff of Mack 12.9 (11.5-14.5) % Plt Count 133 L (140-350) 10*3/uL MPV 10.8 (7.4-12.2) FL Sodium 139 (135-145) meq/L Potassium 4.0 (3.8-5.2) meq/L Chloride 107 (98-112) meq/L Carbon Dioxide 21 L (23-33) meq/L Anion Gap 11 (5-20) BUN 7 (7-22) mg/dL Creatinine 0.8 (0.70-1.50) mg/dL Estimated GFR > 60 (>60 ml/min/1.73m(2)) BUN/Creatinine Ratio 8.75 (6-20) Glucose 129 H (78-110) mg/dL Calculated Osmolality 287.0 (267-292) mOsm/kg Calcium 9.5 (8.7-10.7) mg/dL Magnesium 1.4 L (1.6-2.4) mg/dL Total Bilirubin 1.3 H (0.3-1.2) mg/dL AST 64 H (21-57) IU/L ALT 83 H (21-72) IU/L Alkaline Phosphatase 92 (38-126) IU/L Total Protein 7.8 (6.1-8.0) g/dL Albumin 4.3 (3.5-4.8) g/dL Globulin 3.5 (2.50-4.10) g/dL Albumin/Globulin Ratio 1.20 L (1.3-2.0) mg/g Objective : Exam - General General Appearance: No Acute Distress - Eye Eye Exam: No Scleral Icterus - ENT ENT Exam: Mucous Membranes Dry - Respiratory Respiratory Exam: Clear to Auscultation - Bilaterally, Breathing Non Labored - Cardiovascular Cardiovascular Exam: No Murmur, No Clicks, No Gallops, No Rubs, Tachycardia, No JVD - GI/Abdominal GI/Abdominal Exam: Normal Bowel Sounds, Non Tender, Non Distended, Soft - Extremities Extremities Exam: No Clubbing Present, No Edema Present, No Cyanosis Present - Neurological Neurological Exam: Alert, No Facial Droop, Speech Intact / Clear, Moves All Extremities Equally Additional Neurological Exam Details: Arousable with verbal stimuli today. Answering questions more appropriately today. Was still hallucinating some earlier per RNs. Assessment and Plan - Patient Problems (1) Alcohol withdrawal syndrome Current Visit: Yes Status: Acute Qualifiers: Complication of substance-induced condition: with delirium Qualified Description: Alcohol withdrawal syndrome, with delirium Qualifier Code(s) : (F10.231) Alcohol dependence with withdrawal delirium (2) Alcohol withdrawal seizure Current Visit: Yes Status: Acute Qualifiers: Complication of substance-induced condition: uncomplicated Qualified Description: Alcohol withdrawal seizure, uncomplicated Qualifier Code(s): (F10.230) Alcohol dependence with withdrawal, uncomplicated (3) Alcohol abuse Current Visit: Yes Status: Acute (4) Elevated liver function tests Current Visit: Yes Status: Acute (5) Hypokalemia Current Visit: Yes Status: Acute (6) Hypomagnesemia Current Visit: Yes Status: Acute (7) Tongue laceration Current Visit: Yes Status: Acute Qualifiers: Encounter type: initial encounter Qualified Description: Laceration of tongue, initial encounter Qualifier Code(s): (S01.512A) Laceration without foreign body of oral cavity, initial encounter - Assessment / Plan Additional Assessment/Plan Details: Replace magnesium. Continue CIWA protocol, Valium, Precedex, and Ativan when necessary. Precedex is on a continuous drip right now and I do not think we should stop it today. Her supplies are running low, but it appears and discussion with pharmacy that we have enough medication to get us through to Monday. If we continue to run low on supplies, and pharmaceuticals to treat the patient, we may need to look at transferring but right now I think we are okay and I do not need to proceed towards intubation at this time. He is sedated, but arousable, and seems to be protecting his airway. We'll watch for recurrent fevers, and if present, may get blood cultures. Doubt infection. Probably febrile in the setting of severe delirium tremens. Prognosis guarded.
[2016-12-25] MEDS ORDERED: ENOXAPARIN SODIUM 40 MG/0.4 ML SYRINGE SUBCUT ONE (17:04)
[2016-12-25] MEDS: D5-1/2NS + 20mEq KCL 1,000 ML PRIMARY IV SCH (17:31)
--- NOTE | 2016-12-25 18:14 | DI ---
HISTORY: Cough and tachypnea. COMPARISON: 12/22/2016. FINDINGS: There is a single view of the chest demonstrating some new airspace disease along the righ t heart border. This is partially due to poor inspiratory effort. The cardiomediastinum and bony thorax are unremarkable. IMPRESSION: 1. Mild airspace disease within the right lung base. This appears to be primarily due to poor inspir atory effort. Cannot rule out the possibility of an early right lower lobe pneumonia. NOTIFICATION: The above findings were phoned to Mavis Edmond in the ER Department on 12/25/2016 at 0 8:16 PM EST.
[2016-12-25] MEDS ORDERED: ALBUTEROL SULFATE 2.5 MG/3 ML NEB PRN (18:37)
[2016-12-25] MEDS ORDERED: CALCIUM CARBONATE 500 MG (TUMS) CHEWABLE TABLET PO PRN (19:08)
[2016-12-25] MEDS: cefTRIAXone Inj 2 GM in Sodium Chloride 0.9% 100 ML IV SCH (19:20)
[2016-12-25] MEDS: metroNIDAZOLE 500mg (Premix) 500 MG in Premix 1 BAG IV SCH (20:09)
[2016-12-25 20:38] LABS: ABG BASE EXCESS -10 MMOL/L (-2-2); ABG OXYGEN SATURATION 89 % (90-100); ABG PCO2 22 MMHG (34-38); ABG PH 7.43 (7.35-7.45); ABG PO2 53 MMHG (65-75); COLLECTION SITE L Rad X1
[2016-12-25 20:39] LABS: ALLEN TEST Yes
[2016-12-26] MEDS: Dexmedetomidine/NS 100 ML IV SCH ×6 (01:03→18:24)
[2016-12-26] MEDS: metroNIDAZOLE 500mg (Premix) 500 MG in Premix 1 BAG IV SCH ×3 (02:52→20:02)
[2016-12-26] MEDS: NORMAL SALINE 10 ML SYRINGE FLUSH IVP PRN (04:28)
[2016-12-26] MEDS: Diazepam Inj (ETOH withdrawal)10 MG/2 ML CARPUJECT IVP PRN ×3 (04:29→23:53)
[2016-12-26 04:50] LABS: VENOUS PH 7.45 (7.32-7.42)
[2016-12-26] MEDS: ACETAMINOPHEN 500 MG TABLET PO PRN ×2 (05:31→21:48)
[2016-12-26 05:49] LABS: BLOOD UREA NITROGEN 11 mg/dL (7-22); BUN/CREATININE RATIO 13.75 (6-20); CALCIUM 8.9 mg/dL (8.7-10.7); EST GLOMERULAR FILTRATION > 60 (>60 ml/min/1.73m(2)); MAGNESIUM 2.1 mg/dL (1.6-2.4); SERUM ALBUMIN 3.6 g/dL (3.5-4.8)
[2016-12-26] MEDS: OMEPRAZOLE 20 MG CAPSULE PO SCH (07:24)
[2016-12-26] MEDS: Thiamine Tab 100 MG TAB PO SCH (10:00)
[2016-12-26] MEDS: ENOXAPARIN SODIUM 40 MG/0.4 ML SYRINGE SUBCUT SCH (10:00)
[2016-12-26] MEDS: ChlordiazePOXIDE 25mg Cap (ETOH withdrawal) PO SCH ×3 (10:00→20:53)
[2016-12-26] MEDS: Multivitamin Tab 1 TAB PO SCH (10:01)
[2016-12-26] MEDS: buPROPion XL Tab 150 MG TAB PO SCH (10:01)
[2016-12-26] MEDS: MAGNESIUM OXIDE 400 MG TABLET PO SCH (10:01)
[2016-12-26] MEDS: D5-1/2NS + 20mEq KCL 1,000 ML PRIMARY IV SCH (10:19)
[2016-12-26] MEDS: POTASSIUM CHLORIDE 20 MEQ TAB PO SCH ×2 (10:24→20:52)
--- NOTE | 2016-12-26 12:26 | PDOC(PROG) ---
Date and Time of Service: 12/26/2016, 1245 Interval History: Arousable today, states that he is feeling okay. Not eating very much right now. Still sedated on the Precedex and when necessary Valium on the CIWA protocol. Tongue is also looking a little worse, but the nurses report that they're doing mouthwashes and rinses frequently. I spoke with an distance learning administrator in [place], and they suggested that an aquatics that we were using for pneumonia are likely covering the time, and that typically any eschars are tissue will eventually slough and most procedures take place at a later date in terms of any repairs of the tongue. Objective : Data - Labs CBC and BMP: 12/25/16 04:15 12/26/16 04:40 Labs - Last 24 Hours: Laboratory Results 12/25/16 12/26/16 Range/Units 19:09 04:40 ABG pH 7.43 (7.35-7.45) ABG pCO2 22 L (34-38) MMHG ABG pO2 53 L (65-75) MMHG ABG HCO3 14 L (22-26) ABG Total CO2 15 L (23-27) MMOL/L ABG O2 Saturation 89 L (90-100) % ABG Base Excess -10 L (-2-2) MMOL/L Les Test Yes VBG pH 7.45 H (7.32-7.42) VBG pCO2 23 L (45-55) mmHg VBG HCO3 16 L (22-26) mmol/L VBG Base Excess -8 L (-2-2) MMOL/L FiO2 Ra Sodium 137 (135-145) meq/L Potassium 4.2 (3.8-5.2) meq/L Chloride 107 (98-112) meq/L Carbon Dioxide 17 L (23-33) meq/L Anion Gap 13 (5-20) BUN 11 (7-22) mg/dL Creatinine 0.8 (0.70-1.50) mg/dL Estimated GFR > 60 (>60 ml/min/1.73m(2)) BUN/Creatinine Ratio 13.75 (6-20) Glucose 106 (78-110) mg/dL Calculated Osmolality 282.0 (267-292) mOsm/kg Calcium 8.9 (8.7-10.7) mg/dL Magnesium 2.1 (1.6-2.4) mg/dL Total Bilirubin 1.0 (0.3-1.2) mg/dL AST 29 (21-57) IU/L ALT 52 (21-72) IU/L Alkaline Phosphatase 78 (38-126) IU/L Total Protein 6.8 (6.1-8.0) g/dL Albumin 3.6 (3.5-4.8) g/dL Globulin 3.2 (2.50-4.10) g/dL Albumin/Globulin Ratio 1.10 L (1.3-2.0) mg/g Objective : Exam - General General Appearance: Cooperative, Mild Distress Additional General Exam Details: Vital Signs - Last Taken Temperature 96.3 F L 12/26/16 12:00 Pulse Rate 85 12/26/16 12:00 Respiratory Rate 25 H 12/26/16 12:00 Blood Pressure 148/87 12/26/16 12:00 Pulse Ox 95 12/26/16 12:00 Breathing looks more comfortable today. - Eye Eye Exam: No Scleral Icterus - Respiratory Respiratory Exam: Breathing Non Labored, Decreased Breath Sounds - Cardiovascular Cardiovascular Exam: RRR, No Murmur, No Clicks, No Gallops, No Rubs, No JVD - GI/Abdominal GI/Abdominal Exam: Normal Bowel Sounds, Non Tender, Non Distended, Soft - Extremities Extremities Exam: No Clubbing Present, No Edema Present, No Cyanosis Present - Neurological Neurological Exam: Alert, No Facial Droop, Speech Intact / Clear, Moves All Extremities Equally Assessment and Plan - Patient Problems (1) Alcohol withdrawal syndrome Current Visit: Yes Status: Acute Qualifiers: Complication of substance-induced condition: with delirium Qualified Description: Alcohol withdrawal syndrome, with delirium Qualifier Code(s) : (F10.231) Alcohol dependence with withdrawal delirium (2) Aspiration pneumonia Current Visit: Yes Status: Acute Qualifiers: Aspiration pneumonia type: due to gastric secretions Laterality: right Lung location: lower lobe of lung Qualified Description: Aspiration pneumonia of right lower lobe due to gastric secretions Qualifier Code(s) : (J69.0) Pneumonitis due to inhalation of food and vomit (3) Tongue laceration Current Visit: Yes Status: Acute Qualifiers: Encounter type: initial encounter Qualified Description: Laceration of tongue, initial encounter Qualifier Code(s): (S01.512A) Laceration without foreign body of oral cavity, initial encounter (4) Alcohol withdrawal seizure Current Visit: Yes Status: Acute Qualifiers: Complication of substance-induced condition: uncomplicated Qualified Description: Alcohol withdrawal seizure, uncomplicated Qualifier Code(s): (F10.230) Alcohol dependence with withdrawal, uncomplicated (5) Alcohol abuse Current Visit: Yes Status: Acute (6) Elevated liver function tests Current Visit: Yes Status: Acute (7) Hypokalemia Current Visit: Yes Status: Acute (8) Hypomagnesemia Current Visit: Yes Status: Acute - Assessment / Plan Additional Assessment/Plan Details: On antibiotics for aspiration pneumonia, day #2. Continuing medications for alcohol withdrawal, we have been able to titrate down on the Precedex, and we'll watch through the day. Hopefully we will be able to titrate down a little later this afternoon as well. He does seem more alert and is less anxious. In terms of the tongue, we will increase chlorhexidine rinses to every 3 hours and will do 3 times daily hydrogen peroxide rinses as well. I spoke to her nose and throat, and they felt like given developing eschar and possible infection symptoms, to give the tongue time as it would heal fast, slough off any tissue, and would be easier repair or procedural intervention with the tongue more healed from this acute event. Electrolytes are much better today. Check again tomorrow. LFTs seem to be improving. Patient is really in need of alcohol rehabilitation. I think the patient would benefit from either low-dose naltrexone, or naloxone 50 mg by mouth daily. There is some evidence that Topamax therapy else decrease heavy drinking as well.
[2016-12-26] MEDS: cefTRIAXone Inj 2 GM in Sodium Chloride 0.9% 100 ML IV SCH (18:56)
[2016-12-26] MEDS: GUAIFENESIN/DM 5 ML UD CUP PO PRN (23:43)
[2016-12-27] MEDS: D5-1/2NS + 20mEq KCL 1,000 ML PRIMARY IV SCH ×2 (00:18→09:08)
[2016-12-27] MEDS: metroNIDAZOLE 500mg (Premix) 500 MG in Premix 1 BAG IV SCH (03:12)
[2016-12-27] MEDS: GUAIFENESIN/DM 5 ML UD CUP PO PRN ×2 (03:13→08:37)
[2016-12-27 05:05] LABS: HEMOGLOBIN 12.8 g/dL (14.0-18.0); MEAN CORPUSCULAR VOLUME 101.6 FL (80-90)
[2016-12-27 05:08] LABS: HEMATOCRIT 38.9 % (42.0-52.0); MEAN CORPUSCULAR HEMOGLOBIN 33.4 PG (27-31); MEAN CORPUSCULAR HGB CONC 32.9 g/dL (33-37); MEAN PLATELET VOLUME 11.1 FL (7.4-12.2); RED BLOOD COUNT 3.83 10^6/uL (4.70-6.10)
[2016-12-27 05:19] LABS: BLOOD UREA NITROGEN 9 mg/dL (7-22); BUN/CREATININE RATIO 11.25 (6-20); CALCIUM 9.2 mg/dL (8.7-10.7); EST GLOMERULAR FILTRATION > 60 (>60 ml/min/1.73m(2)); MAGNESIUM 2.1 mg/dL (1.6-2.4)
[2016-12-27 05:29] LABS: PLATELET MORPHOLOGY COMMENT NORMAL MORPHOLOGY (NORM); RBC MORPHOLOGY COMMENT NORMAL MORPHOLOGY (NORM); WBC MORPHOLOGY COMMENT SEE COMMENTS (NORM)
[2016-12-27 05:30] LABS: BAND NEUTROPHILS % 2 % (0-10); BASOPHILS % (MANUAL) 0 % (0-1); EOSINOPHILS % (MANUAL) 0 % (0-8); LYMPHOCYTES % (MANUAL) 28 % (10-50); MONOCYTES % (MANUAL) 31 % (0-12); NEUTROPHILS % (MANUAL) 39 % (50-80)
[2016-12-27] MEDS: OMEPRAZOLE 20 MG CAPSULE PO SCH (06:45)
[2016-12-27] MEDS: ACETAMINOPHEN 500 MG TABLET PO PRN (07:21)
--- NOTE | 2016-12-27 07:44 | PDOC(PROG) ---
Date and Time of Service: 12/27/2016 7:40 AM Interval History: Subjective Patient's feel a lot better he said, apparently had 2 seizures before he was brought to the hospital. He was the in the hospital because of severe withdrawal , he was on Precedex infusion and that was tapered gradually off and was discontinued last night. Had some cough and some phlegm. He feels well and he wants to go home. He did walk around and did okay. He plans on quitting alcohol. However he doesn't want to do inpatient treatment. Objective : Data - Labs CBC and BMP: 12/27/16 04:10 12/27/16 04:10 Labs - Last 24 Hours: Laboratory Results 12/27/16 Range/Units 04:10 WBC 6.99 (4.8-10.8) 10^3/uL RBC 3.83 L (4.70-6.10) 10^6/uL Hgb 12.8 L (14.0-18.0) g/dL Hct 38.9 L (42.0-52.0) % MCV 101.6 H (80-90) FL MCH 33.4 H (27-31) PG MCHC 32.9 L (33-37) g/dL RDW Std Deviation 47.5 (39-50) fL RDW Coeff of Mack 13.0 (11.5-14.5) % Plt Count 211 (140-350) 10*3/uL MPV 11.1 (7.4-12.2) FL Neutrophils % (Manual) 39 L (50-80) % Band Neutrophils % 2 (0-10) % Lymphocytes % (Manual) 28 (10-50) % Monocytes % (Manual) 31 H (0-12) % Eosinophils % (Manual) 0 (0-8) % Basophils % (Manual) 0 (0-1) % Metamyelocytes % Not Reportable Myelocytes % Not Reportable Promyelocytes % Not Reportable Blast Cells Not Reportable WBC Morphology Comment See comments (NORM) Plt Morphology Comment Normal morphology (NORM) RBC Morph Comment Normal morphology (NORM) Sodium 140 (135-145) meq/L Potassium 4.4 (3.8-5.2) meq/L Chloride 110 (98-112) meq/L Carbon Dioxide 19 L (23-33) meq/L Anion Gap 11 (5-20) BUN 9 (7-22) mg/dL Creatinine 0.8 (0.70-1.50) mg/dL Estimated GFR > 60 (>60 ml/min/1.73m(2)) BUN/Creatinine Ratio 11.25 (6-20) Glucose 95 (78-110) mg/dL Calculated Osmolality 288.0 (267-292) mOsm/kg Calcium 9.2 (8.7-10.7) mg/dL Magnesium 2.1 (1.6-2.4) mg/dL Objective : Exam - General General Appearance: No Acute Distress, Cooperative, Thin - Head Head Exam: Normal Inspection, Atraumatic - Eye Eye Exam: Normal Appearance - ENT ENT Exam: Normal Exam Additonal ENT Exam Details: There is a laceration to the lateral aspect of the tongue. - Neck Neck Exam: Normal Inspection - Respiratory Respiratory Exam: Clear to Auscultation - Bilaterally - Cardiovascular Cardiovascular Exam: RRR - GI/Abdominal GI/Abdominal Exam: Normal Bowel Sounds, Non Tender, Non Distended, Soft - Rectal Rectal Exam: Deferred - External Exam: Deferred - Extremities Extremities Exam: Normal Inspection Additional Extremities Exam Details: There is no tremor in his hands - Back Back Exam: Normal Inspection - Neurological Neurological Exam: Alert, Oriented x 3, CN II-XII Intact, Speech Intact / Clear , Moves All Extremities Equally - Psychiatric Psychiatric Exam: Normal Affect - Integumentary Integumentary Exam: Normal Color Assessment and Plan - Patient Problems (1) Alcohol withdrawal seizure Status: Acute Comment: This is resolved. He is off the Precedex infusion. He wants to go home. I told him my preference is to watch him another night however he wants to go home. I told him we'll watch him another 1-2 hours and will walk around if things remains stable we'll discharge him. Will try to get him an appointment as an outpatient with primary and with the [facility], [place] [facility] and with ENT. I did warn him not to drink again. We'll give him just few pills of Librium. I emphasized that's Librium and alcohol will lead to respiratory depression and . Qualifiers: Complication of substance-induced condition: uncomplicated Qualified Description: Alcohol withdrawal seizure, uncomplicated Qualifier Code(s): (F10.230) Alcohol dependence with withdrawal, uncomplicated (2) Aspiration pneumonia Status: Acute Comment: He is on antibiotics we'll discharge him on a few pills. Qualifiers: Aspiration pneumonia type: due to gastric secretions Laterality: right Lung location: lower lobe of lung Qualified Description: Aspiration pneumonia of right lower lobe due to gastric secretions Qualifier Code(s) : (J69.0) Pneumonitis due to inhalation of food and vomit
[2016-12-27] MEDS: ENOXAPARIN SODIUM 40 MG/0.4 ML SYRINGE SUBCUT SCH (08:37)
[2016-12-27] MEDS: Thiamine Tab 100 MG TAB PO SCH (08:38)
[2016-12-27] MEDS: ChlordiazePOXIDE 25mg Cap (ETOH withdrawal) PO SCH (08:38)
[2016-12-27] MEDS: buPROPion XL Tab 150 MG TAB PO SCH (08:38)
[2016-12-27] MEDS: POTASSIUM CHLORIDE 20 MEQ TAB PO SCH (08:38)
[2016-12-27] MEDS: Multivitamin Tab 1 TAB PO SCH (08:39)
[2016-12-27 08:49] VITALS: RESP 18
[2016-12-27 10:02] VITALS: TEMP 97.7
[2016-12-27] MEDS ORDERED: Thiamine Tab 100 MG TAB PO SCH (11:49)
--- NOTE | 2016-12-27 12:33 | DCSUMMARY ---
Hospitalization Summary Admit Date: 12/22/16 Discharge Date: 12/27/16 Hospital Course: Discharge diagnoses 1. Alcohol withdrawal seizures 2. Alcohol withdrawal 3. Aspiration pneumonia 4. Laceration to the Right Side of the tongue 5. History of depression/anxiety 6. Mild ventriculomegaly and moderate cerebellar and cerebral atrophy advanced for patient's stated age. Hospital course This is a 31 years old male with medical history significant for history of alcohol abuse who quit drinking 2 days before admission and on the day of admission he had 2 witnessed tonic-clonic withdrawal seizures. And because of that they brought him to the hospital. He was in alcohol withdrawal he was having tremor and was tachycardic and hypertensive. He did bit his tongue and he had a laceration to the lateral right side of the tongue. He was admitted to the hospital by Dr. Machado please see his note. Patient was put on fluids, CIWA protocol. However things continued to worsen so he was transferred to the ICU and was put on Precedex infusion. he Started to cough and was thought that he had aspiration pneumonia so was put on antibiotics. It took few days to control his symptoms. I saw him on the day of discharge the Precedex infusion was stopped the night before. He was doing better he wanted to go home> Did discuss with him alcohol rehab he said he did not want inpatient treatment. He We'll follow-up as an outpatient with his primary and [facility]. He walked around and did okay and he wanted to go home so we discharged him home. I told him I prefer that he stay another day however he wanted to go home. He did okay with walking around as I said so we discharged him home. I did give him a few pills of Librium and warned him against mixing those alcohol as this may lead to respiratory depression and . He said he is planning on quitting alcohol and is not going to drink again. We did discharge him also on few days of antibiotics. regarding the tongue laceration Dr. Machado spoke with ENT who suggested conservative management . On discharge we did get him an appointment with ENT as a follow-up on that. Laboratory Results 12/22/16 12/22/16 12/23/16 Range/Units 10:27 12:00 04:59 WBC 13.48 H 6.72 (4.8-10.8) 10^3/uL RBC 4.52 L 3.90 L (4.70-6.10) 10^6/uL Hgb 15.0 12.9 L (14.0-18.0) g/dL Hct 44.7 38.6 L (42.0-52.0) % MCV 98.9 H 99.0 H (80-90) FL MCH 33.2 H 33.1 H (27-31) PG MCHC 33.6 33.4 (33-37) g/dL RDW Std Deviation 50.3 H 48.4 (39-50) fL RDW Coeff of Mack 14.1 13.6 (11.5-14.5) % Plt Count 178 114 L (140-350) 10*3/uL MPV 11.0 10.7 (7.4-12.2) FL Immature Gran % (Auto) 0.3 0.1 (0-5) % Neut % (Auto) 74.0 69.4 (50-80) % Lymph % (Auto) 12.9 16.1 (10-50) % Geary % (Auto) 11.9 13.4 (5-15) % Eos % (Auto) 0.2 0.6 (0-8) % Baso % (Auto) 0.7 0.4 (0-1) % Immature Gran # (Auto) 0.04 0.01 10*3/UL Neut # (Auto) 9.98 4.66 10*3/UL Lymph # (Auto) 1.74 1.08 10*3/uL Geary # (Auto) 1.60 H 0.90 H (0.3-0.8) 10*3/UL Eos # (Auto) 0.03 0.04 10*3/UL Baso # (Auto) 0.09 0.03 10*3/UL Neutrophils % (Manual) (50-80) % Band Neutrophils % (0-10) % Lymphocytes % (Manual) (10-50) % Monocytes % (Manual) (0-12) % Eosinophils % (Manual) (0-8) % Basophils % (Manual) (0-1) % Metamyelocytes % Myelocytes % Promyelocytes % Blast Cells WBC Morphology Comment Normal morphology Normal morphology (NORM) Plt Morphology Comment Normal morphology Normal morphology (NORM) RBC Morph Comment Normal morphology Normal morphology (NORM) ABG pH (7.35-7.45) ABG pCO2 (34-38) MMHG ABG pO2 (65-75) MMHG ABG HCO3 (22-26) ABG Total CO2 (23-27) MMOL/L ABG O2 Saturation (90-100) % ABG Base Excess (-2-2) MMOL/L Les Test VBG pH (7.32-7.42) VBG pCO2 (45-55) mmHg VBG HCO3 (22-26) mmol/L VBG Base Excess (-2-2) MMOL/L FiO2 Sodium 145 139 (135-145) meq/L Potassium 3.0 L 2.7 L (3.8-5.2) meq/L Chloride 100 104 (98-112) meq/L Carbon Dioxide 16 L 25 (23-33) meq/L Anion Gap 29 H 10 (5-20) BUN 11 7 (7-22) mg/dL Creatinine 0.9 0.7 (0.70-1.50) mg/dL Estimated GFR > 60 > 60 (>60 ml/min/1.73m(2)) BUN/Creatinine Ratio 12.22 10.00 (6-20) Glucose 167 H 110 (78-110) mg/dL Calculated Osmolality 302.0 H 286.0 (267-292) mOsm/kg Calcium 9.9 8.2 L (8.7-10.7) mg/dL Phosphorus 2.7 (2.4-4.3) mg/dl Magnesium 1.1 L 2.2 (1.6-2.4) mg/dL Total Bilirubin 1.8 H 1.3 H (0.3-1.2) mg/dL AST 326 H 154 H (21-57) IU/L ALT 173 H 121 H (21-72) IU/L Alkaline Phosphatase 118 80 (38-126) IU/L Total Creatine Kinase 362 H (55-170) IU/L Total Protein 8.9 H 7.0 (6.1-8.0) g/dL Albumin 5.1 H 3.9 (3.5-4.8) g/dL Globulin 3.8 3.1 (2.50-4.10) g/dL Albumin/Globulin Ratio 1.30 1.20 L (1.3-2.0) mg/g Amylase 149 H (30-110) U/L Lipase 310 H 196 (23-300) IU/L Ur Collection Type Clean catch urine U Specif Grav (Refrac) 1.025 Urine Opiates Screen Negative (NEG) Ur Buprenorphine Negative (NEG) Ur Oxycodone Screen Negative (NEG) Urine Methadone Screen Negative (NEG) Ur Propoxyphene Screen Negative (NEG) Barbiturate Screen Negative (NEG) U Tricyclic Antidepress Negative (NEG) Phencyclidine Screen Negative (NEG) Amphetamines Screen Negative (NEG) U Methamphetamines Scrn Negative (NEG) Benzodiazepines Screen Negative (NEG) Cocaine Screen Negative (NEG) U Marijuana (THC) Screen Negative (NEG) Serum Alcohol < 10 (0-10) mg/dL 12/24/16 12/25/16 12/25/16 Range/Units 04:20 04:15 19:09 WBC 6.01 6.45 (4.8-10.8) 10^3/uL RBC 3.78 L 4.06 L (4.70-6.10) 10^6/uL Hgb 12.3 L 13.6 L (14.0-18.0) g/dL Hct 38.2 L 40.4 L (42.0-52.0) % MCV 101.1 H 99.5 H (80-90) FL MCH 32.5 H 33.5 H (27-31) PG MCHC 32.2 L 33.7 (33-37) g/dL RDW Std Deviation 47.9 45.2 (39-50) fL RDW Coeff of Mack 13.3 12.9 (11.5-14.5) % Plt Count 126 L 133 L (140-350) 10*3/uL MPV 11.1 10.8 (7.4-12.2) FL Immature Gran % (Auto) (0-5) % Neut % (Auto) (50-80) % Lymph % (Auto) (10-50) % Geary % (Auto) (5-15) % Eos % (Auto) (0-8) % Baso % (Auto) (0-1) % Immature Gran # (Auto) 10*3/UL Neut # (Auto) 10*3/UL Lymph # (Auto) 10*3/uL Geary # (Auto) (0.3-0.8) 10*3/UL Eos # (Auto) 10*3/UL Baso # (Auto) 10*3/UL Neutrophils % (Manual) (50-80) % Band Neutrophils % (0-10) % Lymphocytes % (Manual) (10-50) % Monocytes % (Manual) (0-12) % Eosinophils % (Manual) (0-8) % Basophils % (Manual) (0-1) % Metamyelocytes % Myelocytes % Promyelocytes % Blast Cells WBC Morphology Comment (NORM) Plt Morphology Comment (NORM) RBC Morph Comment (NORM) ABG pH 7.43 (7.35-7.45) ABG pCO2 22 L (34-38) MMHG ABG pO2 53 L (65-75) MMHG ABG HCO3 14 L (22-26) ABG Total CO2 15 L (23-27) MMOL/L ABG O2 Saturation 89 L (90-100) % ABG Base Excess -10 L (-2-2) MMOL/L Les Test Yes VBG pH (7.32-7.42) VBG pCO2 (45-55) mmHg VBG HCO3 (22-26) mmol/L VBG Base Excess (-2-2) MMOL/L FiO2 Ra Sodium 142 139 (135-145) meq/L Potassium 3.6 L 4.0 (3.8-5.2) meq/L Chloride 107 107 (98-112) meq/L Carbon Dioxide 23 21 L (23-33) meq/L Anion Gap 12 11 (5-20) BUN 6 L 7 (7-22) mg/dL Creatinine 0.7 0.8 (0.70-1.50) mg/dL Estimated GFR > 60 > 60 (>60 ml/min/1.73m(2)) BUN/Creatinine Ratio 8.57 8.75 (6-20) Glucose 88 129 H (78-110) mg/dL Calculated Osmolality 290.0 287.0 (267-292) mOsm/kg Calcium 8.8 9.5 (8.7-10.7) mg/dL Phosphorus (2.4-4.3) mg/dl Magnesium 1.8 1.4 L (1.6-2.4) mg/dL Total Bilirubin 1.0 1.3 H (0.3-1.2) mg/dL AST 99 H 64 H (21-57) IU/L ALT 96 H 83 H (21-72) IU/L Alkaline Phosphatase 89 92 (38-126) IU/L Total Creatine Kinase (55-170) IU/L Total Protein 7.2 7.8 (6.1-8.0) g/dL Albumin 4.1 4.3 (3.5-4.8) g/dL Globulin 3.2 3.5 (2.50-4.10) g/dL Albumin/Globulin Ratio 1.20 L 1.20 L (1.3-2.0) mg/g Amylase (30-110) U/L Lipase (23-300) IU/L Ur Collection Type U Specif Grav (Refrac) Urine Opiates Screen (NEG) Ur Buprenorphine (NEG) Ur Oxycodone Screen (NEG) Urine Methadone Screen (NEG) Ur Propoxyphene Screen (NEG) Barbiturate Screen (NEG) U Tricyclic Antidepress (NEG) Phencyclidine Screen (NEG) Amphetamines Screen (NEG) U Methamphetamines Scrn (NEG) Benzodiazepines Screen (NEG) Cocaine Screen (NEG) U Marijuana (THC) Screen (NEG) Serum Alcohol (0-10) mg/dL 12/26/16 12/27/16 Range/Units 04:40 04:10 WBC 6.99 (4.8-10.8) 10^3/uL RBC 3.83 L (4.70-6.10) 10^6/uL Hgb 12.8 L (14.0-18.0) g/dL Hct 38.9 L (42.0-52.0) % MCV 101.6 H (80-90) FL MCH 33.4 H (27-31) PG MCHC 32.9 L (33-37) g/dL RDW Std Deviation 47.5 (39-50) fL RDW Coeff of Mack 13.0 (11.5-14.5) % Plt Count 211 (140-350) 10*3/uL MPV 11.1 (7.4-12.2) FL Immature Gran % (Auto) (0-5) % Neut % (Auto) (50-80) % Lymph % (Auto) (10-50) % Geary % (Auto) (5-15) % Eos % (Auto) (0-8) % Baso % (Auto) (0-1) % Immature Gran # (Auto) 10*3/UL Neut # (Auto) 10*3/UL Lymph # (Auto) 10*3/uL Geary # (Auto) (0.3-0.8) 10*3/UL Eos # (Auto) 10*3/UL Baso # (Auto) 10*3/UL Neutrophils % (Manual) 39 L (50-80) % Band Neutrophils % 2 (0-10) % Lymphocytes % (Manual) 28 (10-50) % Monocytes % (Manual) 31 H (0-12) % Eosinophils % (Manual) 0 (0-8) % Basophils % (Manual) 0 (0-1) % Metamyelocytes % Not Reportable Myelocytes % Not Reportable Promyelocytes % Not Reportable Blast Cells Not Reportable WBC Morphology Comment See comments (NORM) Plt Morphology Comment Normal morphology (NORM) RBC Morph Comment Normal morphology (NORM) ABG pH (7.35-7.45) ABG pCO2 (34-38) MMHG ABG pO2 (65-75) MMHG ABG HCO3 (22-26) ABG Total CO2 (23-27) MMOL/L ABG O2 Saturation (90-100) % ABG Base Excess (-2-2) MMOL/L Les Test VBG pH 7.45 H (7.32-7.42) VBG pCO2 23 L (45-55) mmHg VBG HCO3 16 L (22-26) mmol/L VBG Base Excess -8 L (-2-2) MMOL/L FiO2 Sodium 137 140 (135-145) meq/L Potassium 4.2 4.4 (3.8-5.2) meq/L Chloride 107 110 (98-112) meq/L Carbon Dioxide 17 L 19 L (23-33) meq/L Anion Gap 13 11 (5-20) BUN 11 9 (7-22) mg/dL Creatinine 0.8 0.8 (0.70-1.50) mg/dL Estimated GFR > 60 > 60 (>60 ml/min/1.73m(2)) BUN/Creatinine Ratio 13.75 11.25 (6-20) Glucose 106 95 (78-110) mg/dL Calculated Osmolality 282.0 288.0 (267-292) mOsm/kg Calcium 8.9 9.2 (8.7-10.7) mg/dL Phosphorus (2.4-4.3) mg/dl Magnesium 2.1 2.1 (1.6-2.4) mg/dL Total Bilirubin 1.0 (0.3-1.2) mg/dL AST 29 (21-57) IU/L ALT 52 (21-72) IU/L Alkaline Phosphatase 78 (38-126) IU/L Total Creatine Kinase (55-170) IU/L Total Protein 6.8 (6.1-8.0) g/dL Albumin 3.6 (3.5-4.8) g/dL Globulin 3.2 (2.50-4.10) g/dL Albumin/Globulin Ratio 1.10 L (1.3-2.0) mg/g Amylase (30-110) U/L Lipase (23-300) IU/L Ur Collection Type U Specif Grav (Refrac) Urine Opiates Screen (NEG) Ur Buprenorphine (NEG) Ur Oxycodone Screen (NEG) Urine Methadone Screen (NEG) Ur Propoxyphene Screen (NEG) Barbiturate Screen (NEG) U Tricyclic Antidepress (NEG) Phencyclidine Screen (NEG) Amphetamines Screen (NEG) U Methamphetamines Scrn (NEG) Benzodiazepines Screen (NEG) Cocaine Screen (NEG) U Marijuana (THC) Screen (NEG) Serum Alcohol (0-10) mg/dL Discharge instruction Diet regular Activity as tolerated Medications Home Medications Medication Instructions Recorded Confirmed Type RX: Bupropion HCl [Bupropion HCl 150 mg PO DAILY 12/22/16 12/22/16 History Sr] RX: Omeprazole [Prilosec] 40 mg PO DAILY 12/22/16 12/22/16 History Amoxicillin/Potassium Clav 1 each PO BID #8 tablet 12/27/16 Rx [Augmentin 875-125 Tablet] Chlordiazepoxide HCl [Librium] 25 mg PO TID #8 capsule 12/27/16 Rx RX: Multivitamin Tab [Thera Tab] 1 tab PO DAILY #1 tab 12/27/16 Rx Follow-up with PCP in 1-2 weeks, with ENT 1-2 weeks, with [facility]. Condition at discharge was stable for discharge Exam - Vitals Vital Signs: Vital Signs Temperature 97.7 F Temperature Source Temporal Artery Scan Pulse Rate [Telemetry] 96 Pulse Rate [Apical] 88 Pulse Rate [Pulse Oximeter 90 Right] Pulse Rate 96 Respiratory Rate 18 Blood Pressure [Left Arm] 137/91 Blood Pressure [Right Arm] 149/105 Blood Pressure 134/91 Pulse Ox 94 Oxygen Flow Rate 4 Oxygen Delivery Method Room Air Height 6 ft 1 in Weight 175 lb 9.6 oz Patient Problems - Patient Problem List (1) Alcohol withdrawal seizure Status: Acute Qualifiers: Complication of substance-induced condition: uncomplicated Qualified Description: Alcohol withdrawal seizure, uncomplicated Qualifier Code(s): (F10.230) Alcohol dependence with withdrawal, uncomplicated (2) Aspiration pneumonia Status: Acute Qualifiers: Aspiration pneumonia type: due to gastric secretions Laterality: right Lung location: lower lobe of lung Qualified Description: Aspiration pneumonia of right lower lobe due to gastric secretions Qualifier Code(s) : (J69.0) Pneumonitis due to inhalation of food and vomit
== END 2016-12-27 11:18 | disposition home or self-care (01) | DRG 896 ==
LOC: ER 10:14 → ICU 11:46 → MED/SURG 11:47 → ICU 12-24 06:27
PROVIDERS: ADMIT Family Medicine; ATTEND Family Medicine
DX: F10.239 Alcohol dependence with withdrawal, unspecified (principal); J69.0 Pneumonitis due to inhalation of food and vomit; R56.9 Unspecified convulsions; S01.512A Laceration without foreign body of oral cavity, initial encounter; E87.6 Hypokalemia; E83.42 Hypomagnesemia; E88.09 Other disorders of plasma-protein metabolism, not elsewhere classified; R79.89 Other specified abnormal findings of blood chemistry; J02.9 Acute pharyngitis, unspecified
CPT/HCPCS: 36415; 36600; 70450; 70491; 71010; 80048; 80053; 80305; 80320; 82150; 82550; 82803; 83690; 83735; 84100; 85007; 85025; 85027; 87040; 93005; 93010; 94761; 96365; 96376; 99284; J0696; J1650; J2060; J3360; J3411; J3475; J3480; J3490; J7030; J7040; J7050

== ENCOUNTER 2018-12-02 21:52 | Inpatient (IN) ==
[2018-12-02] MEDS ORDERED: Sodium Chloride 0.9% 1,000 ML, Magnesium Sulfate 2gm (Premix) 50 ML with Multivitamin I... IV ONE ×5 (22:13)
[2018-12-02] MEDS ORDERED: LORazepam 2 MG/1 ML VIAL IVP ONE (22:13)
[2018-12-02 22:40] LABS: Hematocrit [HCT] 41.9 % (42.0-52.0); Hemoglobin [HGB] 14.9 g/dL (14.0-18.0); MEAN CORPUSCULAR HGB CONC 35.6 g/dL (33-37); MEAN CORPUSCULAR VOLUME 92.9 FL (80-90); MEAN PLATELET VOLUME 11.3 FL (7.4-12.2); RED BLOOD COUNT 4.51 10^6/uL (4.70-6.10)
[2018-12-02 22:44] LABS: BUN/CREATININE RATIO 16.84 (6-20); SERUM ALBUMIN 5.2 g/dL (3.5-4.8)
[2018-12-02 22:48] LABS: BAND NEUTROPHILS % 0 % (0-10); BASOPHILS % (MANUAL) 0 % (0-1); EOSINOPHILS % (MANUAL) 0 % (0-8); MONOCYTES % (MANUAL) 7 % (0-12); NEUTROPHILS % (MANUAL) 84 % (50-80); PLATELET MORPHOLOGY COMMENT NORMAL MORPHOLOGY (NORM); RBC MORPHOLOGY COMMENT NORMAL MORPHOLOGY (NORM); WBC MORPHOLOGY COMMENT NORMAL MORPHOLOGY (NORM)
[2018-12-02 22:51] LABS: LIPASE 1408 IU/L (23-300)
[2018-12-02] MEDS ORDERED: ONDANSETRON 4 MG/2 ML VIAL IVP ONE (22:59)
[2018-12-02] MEDS ORDERED: FAMOTIDINE 20 MG/2 ML VIAL IVP ONE (23:00)
--- NOTE | 2018-12-02 23:43 | PDOC ---
General Adult HPI - General Chief Complaint: Drug / Alcohol Use &/or Abuse Stated Complaint: ETOH WITHDRAWL N/V/D Date Seen by Provider: 12/02/18 Time Seen by Provider: 22:05 Source: POSITIVE: Patient, EMS Exam Limitations: POSITIVE: No limitations Nurse's Notes Reviewed & Considered: Yes EMS Report Reviewed & Considered: Verbal - History of Present Illness Initial Comment: The patient is a 33-year-old male who is brought to the emergency department by ambulance with complaints of vomiting and withdrawal symptoms. The patient has a long-standing history of alcohol abuse. He states that he has been on a significant Bowser for the past 2-1/2 weeks drinking over a fifth of vodka daily. He states that starting 2 days ago he had onset of nausea and vomiting and has been unable to keep anything down including alcohol. He states he has gotten progressively more weak. Today he was unable to stand without feeling lightheaded or feeling like he was going to pass out. He has had associated liquid diarrhea as well. He does have a history of withdrawal seizures in the past. He is not aware of any seizure activity in the last couple of days. An IV was established per EMS in route and he did receive Zofran in route. Have you received a tetanus shot in the past 10 years?: Unknown - Patient Allergies Allergies/Adverse Reactions: Allergies Allergy/AdvReac Type Severity Reaction Status Date / Time No Known Allergies Allergy Verified 12/02/18 23:26 Past Medical History - heen HEENT History: Denies History Cardiovascular History: Denies History Respiratory History: Denies History Gastrointestinal History: GERD Genitourinary History: Denies History Endocrine History: Denies History Musculoskeletal History: Denies History Neurological History: Denies History Blood Disorders: Denies History Psychiatric History: Depression, Anxiety Disorders, Substance Abuse History of Sexually Transmitted Diseases: No Cancer History: Denies History In Past Year Been Physically Harmed or Verbally Threatened: No History of MDRO: No History of Other Communicable Diseases: No Tobacco Use: Current Every Day Smoker Alcohol Use: Heavy Type of alcohol normally used: Hard Liquor In the Past 12 Months, Have Used or Abuse Any Substance: None Previous Surgical History: Yes Type / Date of Surgery: APPY Significant Family History: No pertinent family hx Past Medical History Reviewed: Reviewed - No Changes ROS - Limitations ROS Limitations: No Limitations Constitution: REPORTS: Weakness (Generalized weakness). DENIES: Fever Cardiovascular: DENIES: Chest Pain Respiratory: DENIES: Cough Non Productive, Shortness Of Breath Neurological: REPORTS: Dizziness. DENIES: Numbness, Seizure Activity, Weakness Gastrointestinal: REPORTS: Abdominal Pain, Nausea, Vomitting, Diarrhea. DENIES: Black Stools, Bloody Stools Endocrine: REPORTS: Fatigue Musculoskeletal: DENIES: Lower Extremity Swelling Genitourinary: REPORTS: Denies Symptoms Eyes: REPORTS: Denies Symptoms ENT: REPORTS: Denies Symptoms Skin: DENIES: Rash General Adult Exam - General Appearance General Appearance: POSITIVE: Other (The patient is awake and alert, he does appear anxious and is very shaky on arrival.) - HEENT HEENT: POSITIVE: Head Inspection Nml, Eyes Inspection Nml, Ears Inspection Nml, Nose Inspection Nml, Dry Mucous Membranes - Neck Neck: POSITIVE: Normal Inspection. NEGATIVE: Lymphadenopathy - Respiratory Respiratory: POSITIVE: No Respiratory Distress, Breath Sounds Normal - Cardiovascular Cardiovascular: POSITIVE: Regular Rate & Rhythm, No Murmur Peripheral Pulses: Dorsalis-pedis (R): 1+, Dorsalis-pedis (L): 1+ - Abdomen Abdomen: Soft: (All Quadrants), Normal Bowel Sounds: (All Quadrants), No Dist ention: (All Quadrants) Additional Abdominal Details: Some mild diffuse abdominal tenderness - Skin Skin: POSITIVE: Normal Color, No Rash - Extremities Extremity: Normal ROM: (All Extremities), Normal Inspection: (All Extremities) - Neurological / Psychological Neurological: POSITIVE: Oriented X3, food products tester Normal As Tested, Motor Normal, Sensation Normal General Adult Progress - Results Reviewed by me Lab Results Reviewed by Me: Yes Lab Results:: Laboratory Results 12/02/18 12/02/18 12/02/18 22:30 22:30 22:30 WBC 6.69 RBC 4.51 L Hgb 14.9 Hct 41.9 L MCV 92.9 H MCH 33.0 H MCHC 35.6 RDW Std Deviation 47.2 RDW Coeff of Mack 14.3 Plt Count 104 L MPV 11.3 Neutrophils % (Manual) 84 H Band Neutrophils % 0 Lymphocytes % (Manual) 9 L Monocytes % (Manual) 7 Eosinophils % (Manual) 0 Basophils % (Manual) 0 Metamyelocytes % Not Reportable Myelocytes % Not Reportable Promyelocytes % Not Reportable Blast Cells Not Reportable WBC Morphology Comment Normal morphology Plt Morphology Comment Normal morphology RBC Morph Comment Normal morphology PT 12.9 H INR 1.12 Sodium 135 Potassium 2.8 L Chloride 75 L Carbon Dioxide 23 Anion Gap 37 H BUN 32 H Creatinine 1.9 H Estimated GFR 41 BUN/Creatinine Ratio 16.84 Glucose 325 H Calculated Osmolality 299.0 H Calcium 10.1 Magnesium 1.1 L Total Bilirubin 3.4 H AST 174 H ALT 113 H Alkaline Phosphatase 115 C-Reactive Protein 1.4 H Total Protein 8.4 H Albumin 5.2 H Globulin 3.2 Albumin/Globulin Ratio 1.60 Amylase Lipase TSH Serum Alcohol 10 12/02/18 12/02/18 22:30 22:30 WBC RBC Hgb Hct MCV MCH MCHC RDW Std Deviation RDW Coeff of Mack Plt Count MPV Neutrophils % (Manual) Band Neutrophils % Lymphocytes % (Manual) Monocytes % (Manual) Eosinophils % (Manual) Basophils % (Manual) Metamyelocytes % Myelocytes % Promyelocytes % Blast Cells WBC Morphology Comment Plt Morphology Comment RBC Morph Comment PT INR Sodium Potassium Chloride Carbon Dioxide Anion Gap BUN Creatinine Estimated GFR BUN/Creatinine Ratio Glucose Calculated Osmolality Calcium Magnesium Total Bilirubin AST ALT Alkaline Phosphatase C-Reactive Protein Total Protein Albumin Globulin Albumin/Globulin Ratio Amylase 186 H Lipase 1408 H* TSH 2.80 Serum Alcohol CBC and BMP: 12/02/18 22:30 12/02/18 22:30 EKG Interpreted/Reviewed By Me:: Yes EKG Interpretation:: POSITIVE: Other (EKG shows sinus tachycardia) - Patient's Progress MDM / ED Course: An IV had been established per EMS. He did receive a 1 L bolus of normal saline. He also received a banana bag. He was given 2 mg of Ativan IV. Blood work reveals a potassium of 2.8 and a magnesium of 1.1. His BUN and creatinine are elevated with a creatinine of 1.9. His lipase is elevated at 1400, bilirubin is 3.4, transaminases are in the 100s. His platelets are also slightly low and his INR is slightly elevated. His blood alcohol level is 10. The patient does appear to be in withdrawal. He also has significant electrolyte abnormalities, elevated liver enzymes and pancreas enzymes. These findings were discussed with the patient as well as with Dr. Machado. Dr. Bryan is agreed to admit the patient for further care. Patient is in agreement with this plan. - Consult Counseled: POSITIVE: Patient, Family, RE: Lab Results, RE: DX Patient Care Time - Estimated PCT Patient Care Time (In Minutes): 30 Vital Signs - VS Reviewed Vital Signs Reviewed: Yes Discharge Clinical Impression: Hypokalemia, Hypomagnesemia, Elevated pancreatic enzyme, Elevated liver function tests Alcohol withdrawal syndrome Qualifiers: Complication of substance-induced condition: with unspecified complication Qualified Code(s): F10.239 - Alcohol dependence with withdrawal, unspecified Discharge Disposition: Admit to Inpatient Condition: Fair Date Decision to Admit to Inpatient: 12/02/18 Time Decision to Admit to Inpatient: 22:45
--- NOTE | 2018-12-02 23:51 | PDOC ---
HPI - History of Present Illness Date of Service: 12/02/18 Time of Service: 23:46 Chief Complaint: vomiting and abdominal pain History of Present Illness: This is a pleasant but unfortunate 33 YO male with chronic alcoholism and recent onset of back pain being managed conservatively with NSAIDs. He drinks a fifth of vodka daily. He has been through inpatient rehab in [place], [place], at [facility], but started drinking alcohol again within 2 months of the program. He states that about two days ago, he started vomiting and had abdominal pain. He was trying to wait it out and not drink and also noted that he was blacking out and not feeling his legs as well. His brother talked him into coming in for evaluation. He was able to move his legs in the ER and has not had incontinence of urine. He may have defecated involintarily, but on a rectal exam, his rectal tone is normal. The patient states he also feels dehydrated. He has had several episodes of alcohol withdrawal and seizures from alcohol withdrawal and sustained a tongue laceration that was severe in one episode. 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 He states he is smoking tobacco, but denies drug abuse. Past Medical History Medical History: 1. Chronic alcohol abuse. 2. low back pain, per history, sciatica Surgical History: 1. Appendectomy Pertinent Family History: No family history of heart disease or diabetes. Past Social History: Smokes, drinks, has 2 children and is . Currently unemployed. lives in an apartment in [place], [place]. Tobacco Use: Current Every Day Smoker In the Past 12 Months, Have Used or Abuse Any of the Following Substance: None Alcohol Use: Heavy Medication / Allergies Home Medications: Home Medications Medication Instructions Recorded Confirmed NK 12/02/18 12/02/18 Allergies/Adverse Reactions: Allergies Allergy/AdvReac Type Severity Reaction Status Date / Time No Known Allergies Allergy Verified 12/02/18 23:26 Review of Systems - Review of Systems All Systems: Reviewed & No Additional Complaints Except as Stated (I did a 12 point review of systems and it was negative except as per HPI) Exam - Vitals Vital Signs: on my exam, HR 120's RR 18, oxygen saturations 96% on room air. afebrile. - General General Appearance: Cooperative, Mild Distress, Disheveled, Thin - Head Head Exam: Normal Inspection, Normocephalic, Atraumatic - Eye Eye Exam: POSITIVE: No Scleral Icterus - ENT ENT Exam: POSITIVE: Mucous Membranes Dry - Neck Neck Exam: Normal Inspection, No Tenderness, No Lymphadenopathy, No Thyromegaly, JVP is not Raised - Respiratory Respiratory Exam: POSITIVE: Clear to Auscultation - Bilaterally, Breathing Non L abored, Normal to Percussion and Palpation - Cardiovascular Cardiovascular Exam: POSITIVE: No Murmur, No Clicks, No Gallops, No Rubs, Tachycardia, No JVD - GI/Abdominal GI/Abdominal Exam: POSITIVE: Normal Bowel Sounds, Non Tender, Non Distended, Soft - Rectal Rectal Exam: POSITIVE: Normal Inspection, Normal Rectal Tone - External Exam: POSITIVE: Deferred Exam: POSITIVE: Deferred - Extremities Extremities Exam: POSITIVE: No Clubbing Present, No Edema Present, No Cyanosis Present - Back Back Exam: POSITIVE: No CVA Tenderness - Neurological Neurological Exam: POSITIVE: Alert, Oriented x 3, No Facial Droop, Speech Intact / Clear, Moves All Extremities Equally - Psychiatric Psychiatric Exam: POSITIVE: Anxious - Integumentary Integumentary Exam: POSITIVE: Normal Color, Warm, Dry Additional Integumentary Exam Details: some scattered bruises, tattoos noted. Results - Labs CBC and BMP: 12/02/18 22:30 12/02/18 22:30 Additional Lab Results: Laboratory Results 12/02/18 12/02/18 12/02/18 22:30 22:30 22:30 WBC 6.69 RBC 4.51 L Hgb 14.9 Hct 41.9 L MCV 92.9 H MCH 33.0 H MCHC 35.6 RDW Std Deviation 47.2 RDW Coeff of Mack 14.3 Plt Count 104 L MPV 11.3 Neutrophils % (Manual) 84 H Band Neutrophils % 0 Lymphocytes % (Manual) 9 L Monocytes % (Manual) 7 Eosinophils % (Manual) 0 Basophils % (Manual) 0 Metamyelocytes % Not Reportable Myelocytes % Not Reportable Promyelocytes % Not Reportable Blast Cells Not Reportable WBC Morphology Comment Normal morphology Plt Morphology Comment Normal morphology RBC Morph Comment Normal morphology PT 12.9 H INR 1.12 Sodium 135 Potassium 2.8 L Chloride 75 L Carbon Dioxide 23 Anion Gap 37 H BUN 32 H Creatinine 1.9 H Estimated GFR 41 BUN/Creatinine Ratio 16.84 Glucose 325 H Calculated Osmolality 299.0 H Calcium 10.1 Magnesium 1.1 L Total Bilirubin 3.4 H AST 174 H ALT 113 H Alkaline Phosphatase 115 C-Reactive Protein 1.4 H Total Protein 8.4 H Albumin 5.2 H Globulin 3.2 Albumin/Globulin Ratio 1.60 Amylase Lipase TSH Serum Alcohol 10 12/02/18 12/02/18 22:30 22:30 WBC RBC Hgb Hct MCV MCH MCHC RDW Std Deviation RDW Coeff of Mack Plt Count MPV Neutrophils % (Manual) Band Neutrophils % Lymphocytes % (Manual) Monocytes % (Manual) Eosinophils % (Manual) Basophils % (Manual) Metamyelocytes % Myelocytes % Promyelocytes % Blast Cells WBC Morphology Comment Plt Morphology Comment RBC Morph Comment PT INR Sodium Potassium Chloride Carbon Dioxide Anion Gap BUN Creatinine Estimated GFR BUN/Creatinine Ratio Glucose Calculated Osmolality Calcium Magnesium Total Bilirubin AST ALT Alkaline Phosphatase C-Reactive Protein Total Protein Albumin Globulin Albumin/Globulin Ratio Amylase 186 H Lipase 1408 H* TSH 2.80 Serum Alcohol Assessment and Plan - Patient Problems (1) Pancreatitis Current Visit: Yes Status: Acute Code(s): K85.90 - Acute pancreatitis without necrosis or infection, unspecified Qualifiers: Chronicity: acute Pancreatitis type: alcohol induced Acute pancreatitis complication: no infection or necrosis Qualified Code(s): K85.20 - Alcohol induced acute pancreatitis without necrosis or infection (2) Delirium tremens Current Visit: Yes Status: Acute Code(s): F10.231 - Alcohol dependence with withdrawal delirium (3) Hypokalemia Current Visit: Yes Status: Acute Code(s): E87.6 - Hypokalemia (4) Hypomagnesemia Current Visit: Yes Status: Acute Code(s): E83.42 - Hypomagnesemia (5) Alcohol withdrawal syndrome Current Visit: Yes Status: Acute Code(s): F10.239 - Alcohol dependence with withdrawal, unspecified (6) Alcohol abuse Current Visit: Yes Status: Chronic Code(s): F10.10 - Alcohol abuse, uncomplicated - Assessment / Plan Additional Assessment/Plan Details: admit to ICU given history of difficult withdrawals in past and alcohol withdrawal seizures CIWA and ativan PRN precedex gtt. scheduled librium seizure precautions NPO pain medications for pancreatitis electrolyte replacement MVI, thiamine replacement will try to get solutions for life consult if patient improves from withdrawal labs in AM discussed with the patient at bedside in detail.
[2018-12-03] MEDS ORDERED: HYDROmorphone 2 MG/1 ML IVP PRN (00:39)
[2018-12-03] MEDS ORDERED: MAGNESIUM 400 MG/5 ML - 30 ML (MILK OF MAGNESIA) PO PRN (00:39)
[2018-12-03] MEDS ORDERED: LIDOCAINE W/ SODIUM BICARB 0.5 ML SYR SUBD PRN (00:39)
[2018-12-03] MEDS ORDERED: Magnesium Sulfate 2gm (Premix) 2 GM/50 ML BAG IV ONE (00:39)
[2018-12-03] MEDS ORDERED: Sodium Chloride 0.9% 1,000 ML, Magnesium Sulfate 2gm (Premix) 50 ML with Multivitamin I... IV SCH ×5 (00:39)
[2018-12-03] MEDS ORDERED: LIDOCAINE HCL 2 % 10 ML JELLY URO-JECT TOPICAL PRN (00:39)
[2018-12-03] MEDS ORDERED: ONDANSETRON 4 MG/2 ML VIAL IV PRN (00:39)
[2018-12-03] MEDS ORDERED: Loperamide Tab 2 MG TABLET PO PRN (00:39)
[2018-12-03] MEDS ORDERED: MAG HYDROX/AL HYDROX/SIMETH 30 ML SUSP PO PRN (00:39)
[2018-12-03] MEDS: Sodium Chloride 0.9% 1,000 ML PRIMARY IV SCH ×3 (01:02→17:44)
[2018-12-03] MEDS: LORazepam Inj(ETOH withdrawal) 2 MG/ML VIAL IVP PRN ×5 (01:03→19:12)
[2018-12-03] MEDS: Dexmedetomidine/NS 400 MCG/100 ML INFUS..BTL IV SCH ×2 (01:48→15:56)
[2018-12-03 04:42] LABS: BASOPHILS # (AUTO) 0.01 10*3/UL; BASOPHILS % (AUTO) 0.2 % (0-1); EOSINOPHILS # (AUTO) 0 10*3/UL; EOSINOPHILS % (AUTO) 0 % (0-8); Hematocrit [HCT] 39.9 % (42.0-52.0); Hemoglobin [HGB] 13.8 g/dL (14.0-18.0); LYMPHOCYTES # (AUTO) 0.87 10*3/uL; MEAN CORPUSCULAR HEMOGLOBIN 32.5 PG (27-31); MEAN CORPUSCULAR HGB CONC 34.6 g/dL (33-37); MEAN CORPUSCULAR VOLUME 93.9 FL (80-90); MEAN PLATELET VOLUME 11.6 FL (7.4-12.2); MONOCYTES # (AUTO) 0.69 10*3/UL (0.3-0.8); MONOCYTES % (AUTO) 12.7 % (5-15); NEUTROPHILS # (AUTO) 3.85 10*3/UL; NEUTROPHILS % (AUTO) 70.7 % (50-80); RED BLOOD COUNT 4.25 10^6/uL (4.70-6.10)
[2018-12-03 04:49] LABS: BUN/CREATININE RATIO 23.33 (6-20); SERUM ALBUMIN 4.4 g/dL (3.5-4.8)
[2018-12-03 05:07] LABS: PLATELET MORPHOLOGY COMMENT NORMAL MORPHOLOGY (NORM); RBC MORPHOLOGY COMMENT NORMAL MORPHOLOGY (NORM); WBC MORPHOLOGY COMMENT NORMAL MORPHOLOGY (NORM)
[2018-12-03] MEDS ORDERED: Sodium Chloride 0.9% 1,000 ML with Multivitamin Inj 10 ML, Thiamine Inj 100 MG, Folic A... IV SCH ×10 (08:00→21:00)
[2018-12-03] MEDS: MAGNESIUM OXIDE 400 MG TABLET PO SCH ×2 (08:27→21:05)
[2018-12-03] MEDS: Thiamine Tab 100 MG TAB PO SCH (08:27)
[2018-12-03] MEDS: PANTOPRAZOLE IV 40 MG VIAL IVP SCH (08:27)
[2018-12-03] MEDS: ChlordiazePOXIDE Cap 25 MG CAPSULE PO SCH ×3 (08:27→21:05)
[2018-12-03] MEDS: Multivitamin Tab 1 TAB PO SCH (08:27)
--- NOTE | 2018-12-03 12:24 | PDOC(PROG) ---
Date of Service: 12/03/18 Time of Service: 10:15 Interval History: resting, arousable no complaints diaphoretic this AM, still tachycardic per RN, has been doing well on precedex, CIWAs okay so far. Objective : Data - Labs CBC and BMP: 12/03/18 04:10 12/03/18 04:10 Additional Lab Results: 12/03/18 12/03/18 04:10 04:10 Total Bilirubin 1.9 H AST 135 H ALT 98 H Alkaline Phosphatase 105 Total Protein 7.7 Albumin 4.4 Lipase 1133 H* Vitamin B12 > 1000 H Serum Folate > 20.0 H Objective : Exam - General General Appearance: No Acute Distress, Cooperative Additional General Exam Details: Vital Signs - Last Taken Temperature 97.9 F 12/03/18 11:00 Pulse Rate 87 12/03/18 12:00 Respiratory Rate 16 12/03/18 12:00 Blood Pressure 95/61 12/03/18 12:00 Pulse Ox 98 12/03/18 12:00 - Eye Eye Exam: No Scleral Icterus - ENT ENT Exam: Mucous Membranes Moist - Neck Neck Exam: JVP is not Raised - Respiratory Respiratory Exam: Clear to Auscultation - Bilaterally, Breathing Non Labored - Cardiovascular Cardiovascular Exam: No Murmur, No Clicks, No Gallops, No Rubs, Tachycardia - GI/Abdominal GI/Abdominal Exam: Normal Bowel Sounds, Non Tender, Non Distended, Soft - Extremities Extremities Exam: No Clubbing Present, No Edema Present, No Cyanosis Present - Neurological Neurological Exam: Alert, No Facial Droop, Speech Intact / Clear Additional Neurological Exam Details: arousable - Psychiatric Psychiatric Exam: Anxious - Integumentary Integumentary Exam: Diaphoretic Assessment and Plan - Patient Problems (1) Pancreatitis Current Visit: Yes Status: Acute Code(s): K85.90 - Acute pancreatitis without necrosis or infection, unspecified Qualifiers: Chronicity: acute Pancreatitis type: alcohol induced Acute pancreatitis complication: no infection or necrosis Qualified Code(s): K85.20 - Alcohol induced acute pancreatitis without necrosis or infection (2) Delirium tremens Current Visit: Yes Status: Acute Code(s): F10.231 - Alcohol dependence with withdrawal delirium (3) Hypokalemia Current Visit: Yes Status: Acute Code(s): E87.6 - Hypokalemia (4) Hypomagnesemia Current Visit: Yes Status: Acute Code(s): E83.42 - Hypomagnesemia (5) Alcohol withdrawal syndrome Current Visit: Yes Status: Acute Code(s): F10.239 - Alcohol dependence with withdrawal, unspecified (6) Alcohol abuse Current Visit: Yes Status: Chronic Code(s): F10.10 - Alcohol abuse, uncomplicated - Assessment / Plan Additional Assessment/Plan Details: continue IV fluids, precedex, CIWA and ativan, librium, and NPO status dilaudid PRN pain from pancreatitis electrolyte replacement PRN, potassium and magnesium labs in AM
--- NOTE | 2018-12-03 12:30 | DI ---
XR L-SPINE 2-3 VW,12/03/2018 7:00 AM: Clinical History: Back pain and sciatica. Previous Exam: None at this facility. Findings: AP and lateral views of the lumbar spine are obtained, and demonstrate anatomic alignment without fra ctures. Vertebral body height is preserved. Intervertebral disc height is also preserved. A nonobstru ctive bowel gas pattern is seen. No pathologic calcifications are seen. Impression: Normal lumbar spine.
--- NOTE | 2018-12-03 12:41 | EKG ---
[address] [place] [address] Measurements Intervals Jber Rate: 106 P: 119 AL: 160 QRS: 20 QRSD: 93 T: 81 QT: 373 QTc: 435 Interpretive Statements SINUS TACHYCARDIA WITH OCCASIONAL VENTRICULAR PREMATURE COMPLEXES MODERATE T-WAVE ABNORMALITY, CONSIDER ANTEROLATERAL ISCHEMIA Compared to ECG 12/22/2016 10:36:52 Ventricular premature complex(es) now present Possible ischemia now present Sinus rhythm no longer present T-wave abnormality still present Electronically Signed On 12-03-18 17:08:15 MDT by Evans Davis [email or web address]
[2018-12-03 18:22] LABS: AMPHETAMINE SCREEN NEGATIVE (NEG); CANNABINOID SCREEN,URINE NEGATIVE (NEG); COCAINE SCREEN NEGATIVE (NEG); METHADONE URINE SCREEN NEGATIVE (NEG); METHAMPHETAMINES SCREEN,URINE NEGATIVE (NEG); OPIATE SCREEN,URINE NEGATIVE (NEG); URINE SAMPLE TYPE CLEAN CATCH URINE
[2018-12-03 21:28] LABS: BUN/CREATININE RATIO 27.5 (6-20)
[2018-12-04] MEDS: LORazepam Inj(ETOH withdrawal) 2 MG/ML VIAL IVP PRN ×5 (04:17→22:48)
[2018-12-04 04:34] LABS: BLOOD UREA NITROGEN 45 mg/dL (7-22); BUN/CREATININE RATIO 34.61 (6-20); SERUM ALBUMIN 3.6 g/dL (3.5-4.8)
[2018-12-04] MEDS: Sodium Chloride 0.9% 1,000 ML PRIMARY IV SCH ×3 (05:07→15:23)
[2018-12-04] MEDS: MAGNESIUM OXIDE 400 MG TABLET PO SCH ×2 (08:06→20:20)
[2018-12-04] MEDS: Multivitamin Tab 1 TAB PO SCH (08:06)
[2018-12-04] MEDS: PANTOPRAZOLE IV 40 MG VIAL IVP SCH (08:06)
[2018-12-04] MEDS: Thiamine Tab 100 MG TAB PO SCH (08:06)
[2018-12-04] MEDS: ChlordiazePOXIDE Cap 25 MG CAPSULE PO SCH ×3 (08:06→21:07)
--- NOTE | 2018-12-04 10:50 | PDOC(PROG) ---
Date of Service: 12/04/18 Time of Service: 10:45 Interval History: patient feeling a little better, less abdominal pain, no nausea or vomiting. lipase elevated still still with symptoms of withdrawal, scoring on CIWA, but fairly low. no chest pain and no SOB still with bilateral tremors from withdrawal, less diaphoretic. Objective : Data - Labs CBC and BMP: 12/03/18 04:10 12/04/18 04:04 Additional Lab Results: 12/04/18 12/04/18 04:04 04:04 Total Bilirubin 1.1 AST 85 H ALT 64 Alkaline Phosphatase 70 Total Protein 6.1 Albumin 3.6 Globulin 2.5 Albumin/Globulin Ratio 1.40 Lipase 1531 H* Objective : Exam - General General Appearance: No Acute Distress, Cooperative Additional General Exam Details: Vital Signs - Last Taken Temperature 97.4 F 12/04/18 10:00 Pulse Rate 74 12/04/18 10:00 Respiratory Rate 18 12/04/18 10:00 Blood Pressure 94/66 12/04/18 10:00 Pulse Ox 97 12/04/18 10:00 - Eye Eye Exam: No Scleral Icterus - ENT ENT Exam: Mucous Membranes Moist - Neck Neck Exam: JVP is not Raised - Respiratory Respiratory Exam: Clear to Auscultation - Bilaterally, Breathing Non Labored - Cardiovascular Cardiovascular Exam: RRR, No Murmur, No Clicks, No Gallops, No Rubs, No JVD - GI/Abdominal GI/Abdominal Exam: Normal Bowel Sounds, Non Tender, Non Distended, Soft - Extremities Extremities Exam: No Clubbing Present, No Edema Present, No Cyanosis Present - Neurological Neurological Exam: Alert, Oriented x 3, No Facial Droop, Speech Intact / Clear, Moves All Extremities Equally Assessment and Plan - Patient Problems (1) Pancreatitis Current Visit: Yes Status: Acute Code(s): K85.90 - Acute pancreatitis without necrosis or infection, unspecified Qualifiers: Chronicity: acute Pancreatitis type: alcohol induced Acute pancreatitis complication: no infection or necrosis Qualified Code(s): K85.20 - Alcohol induced acute pancreatitis without necrosis or infection (2) Delirium tremens Current Visit: Yes Status: Acute Code(s): F10.231 - Alcohol dependence with withdrawal delirium (3) Hypokalemia Current Visit: Yes Status: Acute Code(s): E87.6 - Hypokalemia (4) Hypomagnesemia Current Visit: Yes Status: Acute Code(s): E83.42 - Hypomagnesemia (5) Alcohol withdrawal syndrome Current Visit: Yes Status: Acute Code(s): F10.239 - Alcohol dependence with withdrawal, unspecified (6) Alcohol abuse Current Visit: Yes Status: Chronic Code(s): F10.10 - Alcohol abuse, uncompli cated - Assessment / Plan Additional Assessment/Plan Details: replace potassium with persistent heartburn like symptoms, elevated lipase, check ultrasound of RUQ to look for evidence of cholecystitis or stones overall, still think alcoholic pancreatitis is most likely the cause continue precedex, but may start weaning today continue CIWA ice chips and fluids labs in AM
--- NOTE | 2018-12-04 11:08 | DI ---
US Abdomen Limited,12/04/2018 8:58 AM: Clinical History: Pancreatitis Previous Exam: None at this facility. Findings: Right upper quadrant, and demonstrate diffuse fatty infiltration of the liver. The gallbladder contains sludge. There were no stones. The gallbladder wall measures 2 mm. There is a trace amount of fluid surrounding the gallbladder. The common bile duct measures 5 mm. The right kidney measures 11.2 cm in length without hydronephrosis nor nephrolithiasis. No stones are identified. Impression: 1. There is some sludge within the gallbladder, but no stones. 2. Trace amount of pericholecystic fluid, but a negative sonographic Castro's sign. No evidence of ch olecystitis.
[2018-12-04] MEDS ORDERED: LORazepam 2 MG/1 ML VIAL IV ONE (13:08)
--- NOTE | 2018-12-04 14:27 | DI ---
MRI Abdomen WO Contrast,12/04/2018 12:47 PM: Clinical History: Pancreatitis Previous Exam: None at this facility. Findings: Multiplanar MR images are obtained through the abdomen following an MRCP protocol. There are small bi lateral pleural effusions. The liver demonstrates normal parenchyma. The spleen is unremarkable. Kidn eys and adrenals are normal. The pancreas appears grossly normal although there are appears to be kian e swelling predominantly within the pancreatic tail. The gallbladder is normal. The common bile duct demonstrates normal course, caliber with normal hepat ic ducts and no evidence of filling defect to suggest a stone. Visualized portions of the lumbar spine are unremarkable. Impression: 1. Normal common bile duct. No evidence of common duct stone. 2. Small bilateral pleural effusions. 3. Mild edema involving the pancreas predominantly within the body and tail.
[2018-12-04 17:42] LABS: BLOOD UREA NITROGEN 37 mg/dL (7-22); BUN/CREATININE RATIO 33.63 (6-20)
[2018-12-04] MEDS ORDERED: ONDANSETRON 4 MG/2 ML VIAL IV PRN (18:58)
[2018-12-04] MEDS ORDERED: HYDROmorphone 2 MG/1 ML IVP PRN (18:58)
[2018-12-04] MEDS ORDERED: Loperamide Tab 2 MG TABLET PO PRN (18:58)
[2018-12-04] MEDS ORDERED: MAG HYDROX/AL HYDROX/SIMETH 30 ML SUSP PO PRN (18:58)
[2018-12-04] MEDS ORDERED: ChlordiazePOXIDE Cap 25 MG CAPSULE PO SCH (21:00)
[2018-12-05] MEDS: LORazepam Inj(ETOH withdrawal) 2 MG/ML VIAL IVP PRN ×6 (01:07→22:07)
[2018-12-05 05:20] LABS: BASOPHILS # (AUTO) 0.01 10*3/UL; BASOPHILS % (AUTO) 0.2 % (0-1); EOSINOPHILS # (AUTO) 0.05 10*3/UL; EOSINOPHILS % (AUTO) 0.8 % (0-8); Hematocrit [HCT] 35.9 % (42.0-52.0); Hemoglobin [HGB] 11.8 g/dL (14.0-18.0); MEAN CORPUSCULAR HEMOGLOBIN 32.8 PG (27-31); MEAN CORPUSCULAR HGB CONC 32.9 g/dL (33-37); MEAN CORPUSCULAR VOLUME 99.7 FL (80-90); MEAN PLATELET VOLUME 11.9 FL (7.4-12.2); MONOCYTES # (AUTO) 0.83 10*3/UL (0.3-0.8); MONOCYTES % (AUTO) 13.9 % (5-15); NEUTROPHILS # (AUTO) 3.55 10*3/UL; NEUTROPHILS % (AUTO) 59.7 % (50-80)
[2018-12-05 05:28] LABS: PLATELET MORPHOLOGY COMMENT NORMAL MORPHOLOGY (NORM); RBC MORPHOLOGY COMMENT NORMAL MORPHOLOGY (NORM); WBC MORPHOLOGY COMMENT NORMAL MORPHOLOGY (NORM)
[2018-12-05 05:30] LABS: BLOOD UREA NITROGEN 30 mg/dL (7-22); SERUM ALBUMIN 3.6 g/dL (3.5-4.8)
[2018-12-05 05:50] LABS: LIPASE 4354 IU/L (23-300)
[2018-12-05] MEDS: MAGNESIUM OXIDE 400 MG TABLET PO SCH ×2 (08:54→21:21)
[2018-12-05] MEDS: ChlordiazePOXIDE Cap 25 MG CAPSULE PO SCH ×3 (08:54→21:21)
[2018-12-05] MEDS ORDERED: NICOTINE 21 MG /DAY PATCH TRANSDERM SCH (09:00)
[2018-12-05] MEDS ORDERED: PANTOPRAZOLE IV 40 MG VIAL IVP SCH (09:00)
[2018-12-05] MEDS ORDERED: ChlordiazePOXIDE Cap 25 MG CAPSULE PO SCH (09:00)
[2018-12-05] MEDS ORDERED: ChlordiazePOXIDE Cap 25 MG CAPSULE PO ONE (09:00)
[2018-12-05] MEDS ORDERED: LORazepam 2 MG/1 ML VIAL IV ONE (09:00)
[2018-12-05] MEDS ORDERED: Multivitamin Tab 1 TAB PO SCH (09:00)
[2018-12-05] MEDS ORDERED: Thiamine Tab 100 MG TAB PO SCH (09:00)
[2018-12-05] MEDS ORDERED: MAG HYDROX/AL HYDROX/SIMETH 30 ML SUSP PO PRN (09:32)
[2018-12-05] MEDS ORDERED: Loperamide Tab 2 MG TABLET PO PRN (09:32)
[2018-12-05] MEDS ORDERED: ONDANSETRON 4 MG/2 ML VIAL IV PRN (09:32)
[2018-12-05] MEDS ORDERED: HYDROmorphone 2 MG/1 ML IVP PRN (09:32)
[2018-12-05] MEDS: D5-1/2NS + 20mEq KCL 1,000 ML PRIMARY IV SCH (10:02)
[2018-12-05] MEDS: Dexmedetomidine/NS 400 MCG/100 ML INFUS..BTL IV SCH ×2 (10:02→19:08)
[2018-12-05] MEDS ORDERED: LORazepam 2 MG/1 ML VIAL IVP ONE ×3 (11:30→16:23)
[2018-12-05] MEDS: LORazepam 2 MG/1 ML VIAL IVP SCH ×2 (11:39→17:38)
--- NOTE | 2018-12-05 14:11 | PDOC(PROG) ---
Date of Service: 12/05/18 Time of Service: 14:08 Interval History: Much more confused today. Patient's RN found the patient crawling on the floor in the bathroom he has been very agitated. In his required more Ativan. He denies chest pain or trouble breathing or nausea or vomiting or abdominal pain to me. Discouraging to see lipase collapse I think we need to back off the diet. Objective : Data - Labs CBC and BMP: 12/05/18 04:10 12/05/18 04:10 Additional Lab Results: 12/05/18 04:10 Lipase 4354 H* Objective : Exam - General General Appearance: No Acute Distress, Cooperative Additional General Exam Details: Vital Signs - Last Taken Temperature 97.9 F 12/05/18 11:20 Pulse Rate 65 12/05/18 13:04 Respiratory Rate 20 12/05/18 13:32 Blood Pressure 120/92 12/05/18 13:04 Pulse Ox 95 12/05/18 13:04 - Eye Eye Exam: No Scleral Icterus - ENT ENT Exam: Mucous Membranes Moist - Neck Neck Exam: JVP is not Raised - Respiratory Respiratory Exam: Clear to Auscultation - Bilaterally, Breathing Non Labored - Cardiovascular Cardiovascular Exam: RRR, No Murmur, No Clicks, No Gallops, No Rubs, No JVD - GI/Abdominal GI/Abdominal Exam: Normal Bowel Sounds, Non Tender, Non Distended, Soft - Extremities Extremities Exam: No Clubbing Present, No Edema Present, No Cyanosis Present - Neurological Neurological Exam: Alert, No Facial Droop, Speech Intact / Clear, Moves All Extremities Equally - Psychiatric Psychiatric Exam: Anxious, Agitated Assessment and Plan - Patient Problems (1) Delirium tremens Current Visit: Yes Status: Acute Code(s): F10.231 - Alcohol dependence with withdrawal delirium (2) Pancreatitis Current Visit: Yes Status: Acute Code(s): K85.90 - Acute pancreatitis without necrosis or infection, unspecified Qualifiers: Chronicity: acute Pancreatitis type: alcohol induced Acute pancreatitis complication: no infection or necrosis Qualified Code(s): K85.20 - Alcohol induced acute pancreatitis without necrosis or infection (3) Hypokalemia Current Visit: Yes Status: Acute Code(s): E87.6 - Hypokalemia (4) Hypomagnesemia Current Visit: Yes Status: Acute Code(s): E83.42 - Hypomagnesemia (5) Alcohol withdrawal syndrome Current Visit: Yes Status: Acute Code(s): F10.239 - Alcohol dependence with withdrawal, unspecified (6) Alcohol abuse Current Visit: Yes Status: Chronic Code(s): F10.10 - Alcohol abuse, uncomplicated - Assessment / Plan Additional Assessment/Plan Details: For the pancreatitis, go back to ice chips Continue Dilaudid when necessary pain. In terms of withdrawal, I think he'll need additional doses of Ativan, he may be a little short on benzodiazepines. Increase Librium back to 50 mg 3 times a day. Schedule 2 mg of Ativan every 6 hours. We gave some extra doses of 4 mg IV Ativan based on CIWA protocol as well. Given that he had minimal response this morning to some increased doses of Ativan off the CIWA protocol, I felt it would be best but the patient back in the ICU and resume Precedex. will check labs in AM
[2018-12-05] MEDS ORDERED: LORazepam 2 MG/1 ML VIAL IVP SCH (17:30)
--- NOTE | 2018-12-05 19:39 | DI ---
MRI BRAIN SCAN WITHOUT IV CONTRAST, 12/05/2018 4:18 PM: Clinical History: Confusion. Chronic alcoholism. Prior Exam: None at this facility. Comparison Exam: Noncontrast CT head scan, 12/22/2016.. Sequences: Sagittal T1; Axial ASHLEY T2 and FLAIR. Axial diffusion weighted images with ADC mapping. 4th Ventricle: Normal. 3rd Ventricle: Markedly dilated for the stated age of 33 years. Lateral Ventricles: Markedly dilated for the stated age of 33 years. Sella: Normal size and normal pituitary gland. Cerebrum: Normal. No abnormal signal pattern noted. Severe atrophy. Cerebellum: Normal. No abnormal signal pattern noted. No cerebellopontine angle mass. Severe atrophy. Cerebellar Tonsils: Normal position. Brainstem: Normal. No abnormal signal pattern noted. Severe atrophy. Diffusion Weighted Imaging: Normal. Atrophy: Severe cerebellar, cerebral, and brainstem atrophy, and this pattern typically is associated with chronic alcohol abuse. Extracerebral Mantles/Midline Shift: No extracerebral mantle or dural lesion. No midline shift. Sinuses: Normal. Readin. No acute hemorrhagic or bland infarct noted. No evidence of intracerebral hemorrhage. 2. Severe brainstem, cerebellar, and cerebral atrophy. This pattern is seen with severe chronic alco hol abuse. This severe and diffuse atrophy was present on the previous CT head scans from 2017.
[2018-12-05] MEDS ORDERED: LIDOCAINE HCL 2 % 10 ML JELLY URO-JECT TOPICAL PRN (22:54)
[2018-12-06] MEDS: D5-1/2NS + 20mEq KCL 1,000 ML PRIMARY IV SCH ×3 (00:11→23:36)
[2018-12-06] MEDS: LORazepam 2 MG/1 ML VIAL IVP SCH ×2 (01:26→05:17)
[2018-12-06] MEDS: LORazepam Inj(ETOH withdrawal) 2 MG/ML VIAL IVP PRN (01:26)
[2018-12-06 05:00] LABS: BLOOD UREA NITROGEN 13 mg/dL (7-22); BUN/CREATININE RATIO 16.25 (6-20); SERUM ALBUMIN 3.9 g/dL (3.5-4.8)
[2018-12-06 05:05] LABS: LIPASE 1148 IU/L (23-300)
[2018-12-06] MEDS: Dexmedetomidine/NS 400 MCG/100 ML INFUS..BTL IV SCH (07:30)
--- NOTE | 2018-12-06 08:23 | PDOC(PROG) ---
Date of Service: 12/06/18 Time of Service: 08:30 Interval History: Subjective Patient was laying in bed does not appear in distress. He is with it. He did say he is been drinking vodka a lot according to him. he started to vomit and he was weak in his legs unsteady and passed out and that's why he ended up here. The nausea seemed to be stopped. Vomiting stopped. He is hungry. He feels weak. Did say that she lost control over his bladder while at home. Objective : Data - Labs CBC and BMP: 12/05/18 04:10 12/06/18 04:15 Objective : Exam - General General Appearance: No Acute Distress, Cooperative - Head Head Exam: Normal Inspection - Eye Eye Exam: Normal Appearance - ENT ENT Exam: Normal Exam - Neck Neck Exam: Normal Inspection - Respiratory Respiratory Exam: Clear to Auscultation - Bilaterally - Cardiovascular Cardiovascular Exam: RRR - GI/Abdominal GI/Abdominal Exam: Normal Bowel Sounds, Non Tender, Non Distended, Soft, No Organomegaly - Rectal Rectal Exam: Deferred - External Exam: Deferred Exam: Deferred - Extremities Extremities Exam: Normal Inspection - Back Back Exam: Normal Inspection - Neurological Neurological Exam: Alert, Oriented x 3, CN II-XII Intact, Speech Intact / Clear, Moves All Extremities Equally Additional Neurological Exam Details: He is somewhat slow to respond but on C weakness in one side more than the other. Reflexes symmetrical. Babinski is absent. - Psychiatric Psychiatric Exam: Normal Affect Assessment and Plan - Patient Problems (1) Alcohol withdrawal syndrome Current Visit: Yes Status: Acute Comment: Seems to be controlled., Consider tapering the Precedex later on today. Continue Librium and Ativan as needed. We'll DC the scheduled Ativan. He is weak at one point probably once he is off the Precedex consider PT and OT for him. He has severe cerebral and cerebellar atrophy based on the MRI. Likely secondary to his alcohol. That's probably responsible for his unsteadiness. Code(s): F10.239 - Alcohol dependence with withdrawal, unspecified (2) Hypokalemia Current Visit: Yes Status: Acute Comment: This is replaced. Code(s): E87.6 - Hypokalemia (3) Hypomagnesemia Current Visit: Yes Status: Acute Comment: This is replaced Code(s): E83.42 - Hypomagnesemia (4) Pancreatitis Current Visit: Yes Status: Acute Comment: Lipase is down. I Think will retry clear liquid for him. Code(s): K85.90 - Acute pancreatitis without necrosis or infection, unspecified Qualifiers: Chronicity: acute Pancreatitis type: alcohol induced Acute pancreatitis complication: no infection or necrosis Qualified Code(s): K85.20 - Alcohol induced acute pancreatitis without necrosis or infection
[2018-12-06] MEDS: MAGNESIUM OXIDE 400 MG TABLET PO SCH ×2 (08:53→20:12)
[2018-12-06] MEDS: ChlordiazePOXIDE Cap 25 MG CAPSULE PO SCH ×3 (08:53→20:12)
[2018-12-06] MEDS ORDERED: Patch Removal PATCH TRANSDERM SCH (09:00)
[2018-12-06] MEDS ORDERED: PANTOPRAZOLE IV 40 MG VIAL IVP SCH (09:00)
[2018-12-06] MEDS ORDERED: Multivitamin Tab 1 TAB PO SCH (09:00)
[2018-12-06] MEDS ORDERED: Thiamine Tab 100 MG TAB PO SCH (09:00)
[2018-12-06] MEDS ORDERED: Potassium Chloride Tab 10 MEQ TAB PO SCH (09:00)
[2018-12-06] MEDS ORDERED: NICOTINE 21 MG /DAY PATCH TRANSDERM SCH (09:00)
[2018-12-07] MEDS: D5-1/2NS + 20mEq KCL 1,000 ML PRIMARY IV SCH ×3 (02:26→20:18)
[2018-12-07 05:56] LABS: BASOPHILS # (AUTO) 0.01 10*3/UL; BASOPHILS % (AUTO) 0.2 % (0-1); EOSINOPHILS # (AUTO) 0.04 10*3/UL; EOSINOPHILS % (AUTO) 0.8 % (0-8); Hematocrit [HCT] 37.4 % (42.0-52.0); Hemoglobin [HGB] 12.6 g/dL (14.0-18.0); LYMPHOCYTES # (AUTO) 1.33 10*3/uL; MEAN CORPUSCULAR HEMOGLOBIN 33.2 PG (27-31); MEAN CORPUSCULAR HGB CONC 33.7 g/dL (33-37); MEAN CORPUSCULAR VOLUME 98.4 FL (80-90); MEAN PLATELET VOLUME 11.2 FL (7.4-12.2); MONOCYTES % (AUTO) 26.7 % (5-15); NEUTROPHILS # (AUTO) 2.16 10*3/UL; NEUTROPHILS % (AUTO) 44.5 % (50-80)
[2018-12-07 06:11] LABS: BLOOD UREA NITROGEN 14 mg/dL (7-22); SERUM ALBUMIN 3.7 g/dL (3.5-4.8)
[2018-12-07 06:16] LABS: PLATELET MORPHOLOGY COMMENT NORMAL MORPHOLOGY (NORM); RBC MORPHOLOGY COMMENT NORMAL MORPHOLOGY (NORM); WBC MORPHOLOGY COMMENT NORMAL MORPHOLOGY (NORM)
--- NOTE | 2018-12-07 07:08 | PDOC(PROG) ---
Date of Service: 12/07/18 Time of Service: 07:00 Interval History: Subjective Patient was sitting in the chair doesn't appear in distress. He feels better still weak. The catheter was removed earlier this morning. Yesterday I did talk to his mother , the patient gave me approval for that, she is concerned about him going home again. We discussed with her that we will discuss with him inpatient rehabilitation. Did speak to him in the presence of our media planner / buyer and he seems to be amenable to that provided it is not the same facility that he went to a few years ago. The patient did tolerate diet yesterday. No pain no nausea. Objective : Data - Labs CBC and BMP: 12/07/18 05:50 12/07/18 05:50 Objective : Exam - General General Appearance: No Acute Distress, Cooperative - Head Head Exam: Normal Inspection - Eye Eye Exam: Normal Appearance - ENT ENT Exam: Normal Exam - Neck Neck Exam: Normal Inspection - Respiratory Respiratory Exam: Clear to Auscultation - Bilaterally - Cardiovascular Cardiovascular Exam: RRR - GI/Abdominal GI/Abdominal Exam: Normal Bowel Sounds, Non Tender, Non Distended, Soft, No Organomegaly - Rectal Rectal Exam: Deferred - External Exam: Deferred Exam: Deferred - Extremities Extremities Exam: Normal Inspection - Back Back Exam: Normal Inspection - Neurological Neurological Exam: Alert, Oriented x 3, CN II-XII Intact, No Facial Droop, Speech Intact / Clear, Moves All Extremities Equally - Psychiatric Psychiatric Exam: Normal Affect, Flat Affect - Integumentary Integumentary Exam: Normal Color Assessment and Plan - Patient Problems (1) Alcohol withdrawal syndrome Current Visit: Yes Status: Acute Comment: The Precedex was discontinued yesterday. He is on Librium scheduled continue. He is also on IV lorazepam. Will add by mouth lorazepam based on [facility] protocol. Continue multivitamins. We'll take him out of the ICU. We'll ask PT and OT to work with him as he is weak. Code(s): F10.239 - Alcohol dependence with withdrawal, unspecified (2) Hypokalemia Current Visit: Yes Status: Acute Comment: This is replaced Code(s): E87.6 - Hypokalemia (3) Hypomagnesemia Current Visit: Yes Status: Acute Comment: This is replaced. Code(s): E83.42 - Hypomagnesemia (4) Pancreatitis Current Visit: Yes Status: Acute Comment: Seem to be resolving his tolerating diet. His lipase is still elevated Will repeat tomorrow if still elevated may and consider rescanning his abdomen. Code(s): K85.90 - Acute pancreatitis without necrosis or infection, unspecified Qualifiers: Chronicity: acute Pancreatitis type: alcohol induced Acute pancreatitis complication: no infection or necrosis Qualified Code(s): K85.20 - Alcohol induced acute pancreatitis without necrosis or infection
[2018-12-07] MEDS ORDERED: LORazepam Inj(ETOH withdrawal) 2 MG/ML VIAL IVP PRN (07:41)
[2018-12-07] MEDS ORDERED: MAG HYDROX/AL HYDROX/SIMETH 30 ML SUSP PO PRN (07:41)
[2018-12-07] MEDS ORDERED: LORazepam 1 mg tab (ETOH withdrawal) PO PRN (07:41)
[2018-12-07] MEDS ORDERED: ONDANSETRON 4 MG/2 ML VIAL IV PRN (07:41)
[2018-12-07] MEDS ORDERED: Loperamide Tab 2 MG TABLET PO PRN (07:41)
[2018-12-07] MEDS: ChlordiazePOXIDE Cap 25 MG CAPSULE PO SCH ×3 (09:15→20:18)
[2018-12-07] MEDS: MAGNESIUM OXIDE 400 MG TABLET PO SCH ×2 (09:15→20:18)
[2018-12-07] MEDS: PANTOPRAZOLE IV 40 MG VIAL IVP SCH (09:15)
[2018-12-07] MEDS: Multivitamin Tab 1 TAB PO SCH (09:15)
[2018-12-07] MEDS: Thiamine Tab 100 MG TAB PO SCH (09:15)
[2018-12-07] MEDS: NICOTINE 21 MG /DAY PATCH TRANSDERM SCH (09:16)
[2018-12-07] MEDS: Patch Removal PATCH TRANSDERM SCH (09:17)
[2018-12-08 05:07] LABS: BLOOD UREA NITROGEN 12 mg/dL (7-22); BUN/CREATININE RATIO 13.33 (6-20); SERUM ALBUMIN 3.6 g/dL (3.5-4.8)
[2018-12-08 06:14] LABS: LIPASE 5282 IU/L (23-300)
--- NOTE | 2018-12-08 07:43 | PDOC(PROG) ---
Date of Service: 12/08/18 Time of Service: 07:30 Interval History: Subjective Patient is denying complaint except that he said he vomited yesterday morning twice. Not today. He said he is getting stronger in his legs. He is able to take longer stride now. He is denying abdominal pain. Objective : Data - Labs CBC and BMP: 12/07/18 05:50 12/08/18 04:30 Objective : Exam - General General Appearance: No Acute Distress, Cooperative - Head Head Exam: Normal Inspection - Eye Eye Exam: Normal Appearance - ENT ENT Exam: Normal Exam - Neck Neck Exam: Normal Inspection - Respiratory Respiratory Exam: Clear to Auscultation - Bilaterally - Cardiovascular Cardiovascular Exam: RRR - GI/Abdominal GI/Abdominal Exam: Normal Bowel Sounds, Non Tender, Non Distended, Soft, No Organomegaly - Rectal Rectal Exam: Deferred - External Exam: Deferred - Extremities Extremities Exam: Normal Inspection - Back Back Exam: Normal Inspection - Neurological Neurological Exam: Alert, Oriented x 3, CN II-XII Intact, No Facial Droop, Moves All Extremities Equally - Psychiatric Psychiatric Exam: Normal Affect Assessment and Plan - Patient Problems (1) Alcohol withdrawal syndrome Current Visit: Yes Status: Acute Comment: Seem to be resolving. He is on Librium continue. He is on CIWA protocol however he did not need extra Ativan since he was transferred out of the ICU. Code(s): F10.239 - Alcohol dependence with withdrawal, unspecified (2) Hypokalemia Current Visit: Yes Status: Acute Comment: This is resolved Code(s): E87.6 - Hypokalemia (3) Hypomagnesemia Current Visit: Yes Status: Acute Comment: continue replacement Code(s): E83.42 - Hypomagnesemia (4) Pancreatitis Current Visit: Yes Status: Acute Comment: He is not complaining from abdominal pain he did only vomit twice yesterday. I was hoping that his lipase will come down as he did not have abdominal pain and we can advance his diet despite the elevation however his lipase went higher even today still does not have abdominal pain I think we may have to put him back on clear liquids and will do a CT of his abdomen and see there is any local complication. Continue IV fluid. Code(s): K85.90 - Acute pancreatitis without necrosis or infection, unspecified Qualifiers: Chronicity: acute Pancreatitis type: alcohol induced Acute pancreatitis complication: no infection or necrosis Qualified Code(s): K85.20 - Alcohol induced acute pancreatitis without necrosis or infection
[2018-12-08] MEDS: ChlordiazePOXIDE Cap 25 MG CAPSULE PO SCH ×3 (08:33→20:10)
[2018-12-08] MEDS: Multivitamin Tab 1 TAB PO SCH (08:33)
[2018-12-08] MEDS: Thiamine Tab 100 MG TAB PO SCH (08:34)
[2018-12-08] MEDS: D5-1/2NS + 20mEq KCL 1,000 ML PRIMARY IV SCH ×2 (08:34→18:48)
[2018-12-08] MEDS: PANTOPRAZOLE IV 40 MG VIAL IVP SCH (08:34)
[2018-12-08] MEDS: MAGNESIUM OXIDE 400 MG TABLET PO SCH ×2 (08:34→20:11)
[2018-12-08] MEDS: NICOTINE 21 MG /DAY PATCH TRANSDERM SCH (08:59)
[2018-12-08] MEDS: Patch Removal PATCH TRANSDERM SCH (09:00)
--- NOTE | 2018-12-08 09:19 | DI ---
EXAM: CT Abdomen and Pelvis With Intravenous Contrast CLINICAL HISTORY: Its. reason abdominal pain Physician Notes: Tech Comments: TECHNIQUE: Axial computed tomography images of the abdomen and pelvis with intravenous contrast. CONTRAST: 75 cc of Isovue-300 administered. COMPARISON: 12/06/17 FINDINGS: Lung bases: Mild nodular streaky density in the left lung base. Mediastinum: Small hiatal hernia. ABDOMEN: Liver: Diffuse fatty liver. Hepatomegaly. Gallbladder and bile ducts: Unremarkable. No calcified stones. No ductal dilation. Pancreas: Unremarkable. No mass. No ductal dilation. Spleen: Unremarkable. No splenomegaly. Adrenals: Unremarkable. No mass. Kidneys and ureters: Unremarkable. No solid mass. No hydronephrosis. Stomach and bowel: Nonspecific bowel gas pattern with few scattered air-fluid levels. Moderate retained stool. No obstruction. No mucosal thickening. PELVIS: Appendix: Appendix not well visualized. No secondary signs for acute appendicitis. Bladder: Unremarkable. No mass. Reproductive: Unremarkable as visualized. ABDOMEN and PELVIS: Intraperitoneal space: No free fluid. No free air. Bones/joints: No acute fracture. No dislocation. Soft tissues: Small periumbilical hernia containing fat. Vasculature: Unremarkable. No abdominal aortic aneurysm. Lymph nodes: Unremarkable. No enlarged lymph nodes. IMPRESSION: Nonspecific bowel gas pattern. Moderate retained stool. No free fluid or free air. Fatty liver.
[2018-12-08] MEDS: DOCUSATE 100 MG CAPSULE PO SCH (20:10)
[2018-12-09] MEDS: D5-1/2NS + 20mEq KCL 1,000 ML PRIMARY IV SCH ×4 (03:03→22:55)
[2018-12-09 05:06] LABS: BLOOD UREA NITROGEN 8 mg/dL (7-22); BUN/CREATININE RATIO 8.88 (6-20); SERUM ALBUMIN 4.3 g/dL (3.5-4.8)
[2018-12-09 05:10] LABS: Hematocrit [HCT] 37.7 % (42.0-52.0); Hemoglobin [HGB] 12.8 g/dL (14.0-18.0); RED BLOOD COUNT 3.7 10^6/uL (4.70-6.10)
[2018-12-09 05:11] LABS: MEAN CORPUSCULAR HEMOGLOBIN 34.6 PG (27-31); MEAN CORPUSCULAR HGB CONC 33.9 g/dL (33-37); MEAN CORPUSCULAR VOLUME 102 FL (80-90); MEAN PLATELET VOLUME 8.5 FL (7.4-12.2)
[2018-12-09 05:18] LABS: LIPASE 3739 IU/L (23-300)
[2018-12-09 05:48] LABS: BAND NEUTROPHILS % 0 % (0-10); EOSINOPHILS % (MANUAL) 5 % (0-8); MONOCYTES % (MANUAL) 11 % (0-12); NEUTROPHILS % (MANUAL) 29 % (50-80)
[2018-12-09 05:49] LABS: BASOPHILS % (MANUAL) 1 % (0-1); METAMYELOCYTES % 0 %; MYELOCYTES % 0 %; PLATELET MORPHOLOGY COMMENT NORMAL MORPHOLOGY (NORM); PROMYELOCYTES % 0 %; RBC MORPHOLOGY COMMENT NORMAL MORPHOLOGY (NORM); WBC MORPHOLOGY COMMENT NORMAL MORPHOLOGY (NORM)
[2018-12-09] MEDS: NICOTINE 21 MG /DAY PATCH TRANSDERM SCH (08:53)
[2018-12-09] MEDS: PANTOPRAZOLE IV 40 MG VIAL IVP SCH (08:53)
[2018-12-09] MEDS: Patch Removal PATCH TRANSDERM SCH (08:54)
[2018-12-09] MEDS: MAGNESIUM OXIDE 400 MG TABLET PO SCH ×2 (08:54→20:43)
[2018-12-09] MEDS: Multivitamin Tab 1 TAB PO SCH (08:54)
[2018-12-09] MEDS: Thiamine Tab 100 MG TAB PO SCH (08:54)
[2018-12-09] MEDS: ChlordiazePOXIDE Cap 25 MG CAPSULE PO SCH ×3 (08:54→20:43)
[2018-12-09] MEDS: DOCUSATE 100 MG CAPSULE PO SCH ×2 (08:54→20:43)
--- NOTE | 2018-12-09 09:18 | PDOC(PROG) ---
Date of Service: 12/09/18 Time of Service: 09:20 Interval History: Subjective Patient was sitting at the edge of the bed doesn't appear in distress. Denying complaint. No abdominal pain, no vomiting. Objective : Data - Labs CBC and BMP: 12/09/18 04:30 12/09/18 04:30 Objective : Exam - General General Appearance: No Acute Distress, Cooperative - Head Head Exam: Normal Inspection - Eye Eye Exam: Normal Appearance - ENT ENT Exam: Normal Exam - Neck Neck Exam: Normal Inspection - Respiratory Respiratory Exam: Clear to Auscultation - Bilaterally - Cardiovascular Cardiovascular Exam: RRR - GI/Abdominal GI/Abdominal Exam: Normal Bowel Sounds, Non Tender, Non Distended, Soft, No Organomegaly - Rectal Rectal Exam: Deferred - External Exam: Deferred - Extremities Extremities Exam: Normal Inspection - Back Back Exam: Normal Inspection - Neurological Neurological Exam: Alert, Oriented x 3, CN II-XII Intact, No Facial Droop, Speech Intact / Clear, Moves All Extremities Equally - Psychiatric Psychiatric Exam: Normal Affect Assessment and Plan - Patient Problems (1) Alcohol withdrawal syndrome Current Visit: Yes Status: Acute Comment: Seem to be resolved. He is not needing additional Ativan. We'll start cutting back on his Librium. I spoke to the environmental emergencies planner and she left messages about an inpatient rehabilitation probably will hear from them tomorrow. I did explain that to him and he is okay staying here in the hospital. Code(s): F10.239 - Alcohol dependence with withdrawal, unspecified (2) Hypokalemia Current Visit: Yes Status: Acute Comment: This is resolved Code(s): E87.6 - Hypokalemia (3) Hypomagnesemia Current Visit: Yes Status: Acute Comment: Resolved Code(s): E83.42 - Hypomagnesemia (4) Pancreatitis Current Visit: Yes Status: Acute Comment: His lipase is coming down. Managed to convince him to stay another day on clear liquid. Will repeat his labs tomorrow. If continued to trend down may consider advancing his diet further. Code(s): K85.90 - Acute pancreatitis without necrosis or infection, unspecified Qualifiers: Chronicity: acute Pancreatitis type: alcohol induced Acute pancreatitis complication: no infection or necrosis Qualified Code(s): K85.20 - Alcohol induced acute pancreatitis without necrosis or infection
--- NOTE | 2018-12-09 10:02 | PT.PROG ---
Progress Note Progress Note: S: Pt. states he is doing well today. O: Treatment consisted of functional activities: ambulated around the nurses station x 4 laps with DIESEL ELECTRICIAN x 1; therapeutic exercises: slr, seated marches, hip abd/add, ankle pumps, and bridges x 5, sit to stands x 5. A: Pt. is motivated to improve and is doing well today. His balance is still poor and does require close supervision and contact guard for walking. P: Continue per POC to increase strength and activity tolerance. Karoline Rivera, BI TECHNICAL LEAD
--- NOTE | 2018-12-09 10:04 | PT.PROG ---
Progress Note Progress Note: S: Pt. states he is doing well today. He is excited that his daughters are coming to visit. O: Treatment consisted of functional activities: ambulated around the nurses station x 6 laps with INTERIOR DESIGN FACULTY MEMBER x 1; therapeutic exercises: standing marches, ankle pumps, sit to stands x 10. A: Pt. is motivated to improve and is doing well today. His balance is still poor and does require close supervision and contact guard for walking. He is improving with strength, but was impulsive today and is wanting to get up and move. P: Continue per POC to increase strength and activity tolerance. Karoline Rivera, RESERVOIR ENGINEERING MANAGER
--- NOTE | 2018-12-09 13:45 | OTI REPORT ---
Thank you for the referral of Mina Muñoz. He was seen on 12/07/18 for an occupational therapy inpatient evaluation secondary to alcohol withdrawal and weakness. SUBJECTIVE: The patient is a 33-year-old male. The patient reports that he was at home on Monday when he had too much to drink and subsequently he had severe nausea, weakness, and confusion. The patient does report that he is an alcoholic and he is currently detoxing. He reports that this is his worst episode yet. He reports that he feels very foggy, weak in his upper and lower extremities, and nauseous. The patient reports he is hoping to get into an inpatient facility to treat his alcoholism following his inpatient stay here. The patient does report that he lives alone in [place], [place]. He has stairs within his home. At prior level of function the patient was able to take care of his basic needs to include all ADLs. 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 Today he reports pain in bilateral lower extremities and pain in his sternum secondary to vomiting. The patient reports that he has two children that his mother is currently taking care of. The patient's goal is to feel stronger with ambulation, to perform basic ADL tasks independently, and to feel more normal. The patient has received treatment in the past at [facility] in [place]. He reports he stayed 80 days; however, this was not successful in terms of treating his alcoholism and he is hoping to have better luck this time around. The patient does have family in [place] including two brothers, mom and dad, and his children. He does also have an ex-. PAST MEDICAL HISTORY: Past medical history can be found in the patient's medical record. OBJECTIVE FINDINGS: General observations: The patient was oriented to person, place, reason for hospitalization, date, and time; however, nursing reports that he has only had the alcohol out of his system for 24 hours at this time. Ambulation: The patient did ambulate with physical therapy prior to occupational therapy evaluation and does not feel like ambulating or performing functional mobility tasks at time of OT evaluation. He did demonstrate the ability to ambulate x2 laps around the nurse's station with physical therapy. Activities of daily living: The patient reports that he currently requires assistance with ADLs to include walking to and from the bathroom, basic dressing tasks, and shower tasks secondary to weakness and loss of balance secondary to feeling dizzy. Range of motion: The patient demonstrates upper extremity range of motion that is within functional limits. Strength: The patient demonstrates strength of 4/5 for bilateral shoulders in shoulder flexion and abduction and 4+/5 for biceps, triceps, and wrist/hand strength. The patient does report feeling weak with manual muscle testing of the upper extremities. Vision: The patient reports his vision is within normal limits; however, on occasion when he looks up at the TV he does have double vision. However, this is not on a consistent basis. Cognition: The patient was very slow with basic conversation and comprehending. Processing speed is slow. He does report he has memory issues to include remembering things from the past including instances from high school and younger years. ASSESSMENT: Rehab potential is fair. Problem List: Cognition ADL task performance Generalized weakness Occupational Therapy Goals: To be met by discharge from inpatient: Patient will participate in further cognitive testing to determine the patient's level of ability prior to discharge. Patient will increase bilateral upper extremity strength by one manual muscle grade to assist with basic ADLs. Patient will tolerate standing at the sink x10 minutes without holding on for support and or losses of balance to complete standing grooming tasks. Patient will complete all functional transfers independently with no losses of balance or feeling weak/dizzy. Patient will be independent with all ADLs including upper and lower extremity dressing, toileting, and bathing with no losses of balance. TREATMENT PLAN: Patient will be seen B.I.D during the week and one time per day over the weekend as an inpatient to address the above goals and objectives. INITIAL TREATMENT: Treatment today consisted of the initial occupational therapy evaluation only. RADHA
[2018-12-10 05:51] LABS: BLOOD UREA NITROGEN 6 mg/dL (7-22); BUN/CREATININE RATIO 6.66 (6-20); SERUM ALBUMIN 3.8 g/dL (3.5-4.8)
[2018-12-10 05:58] LABS: LIPASE 1944 IU/L (23-300)
[2018-12-10] MEDS: PANTOPRAZOLE 40 MG TABLET PO SCH (06:42)
[2018-12-10] MEDS: Thiamine Tab 100 MG TAB PO SCH (08:38)
[2018-12-10] MEDS: Multivitamin Tab 1 TAB PO SCH (08:38)
[2018-12-10] MEDS: ChlordiazePOXIDE Cap 25 MG CAPSULE PO SCH ×3 (08:38→20:13)
[2018-12-10] MEDS: MAGNESIUM OXIDE 400 MG TABLET PO SCH ×2 (08:39→20:13)
[2018-12-10] MEDS: Patch Removal PATCH TRANSDERM SCH (08:39)
[2018-12-10] MEDS: DOCUSATE 100 MG CAPSULE PO SCH ×2 (08:39→20:13)
[2018-12-10] MEDS: NICOTINE 21 MG /DAY PATCH TRANSDERM SCH (08:39)
[2018-12-10] MEDS: D5-1/2NS + 20mEq KCL 1,000 ML PRIMARY IV SCH (10:08)
--- NOTE | 2018-12-10 10:20 | PDOC(PROG) ---
Date of Service: 12/10/18 Time of Service: 10:30 Interval History: Subjective Patient is denying abdominal pain, no nausea and no vomiting. No withdrawal symptoms. He is hungry. Objective : Data - Labs CBC and BMP: 12/09/18 04:30 12/10/18 05:00 Objective : Exam - General General Appearance: No Acute Distress, Cooperative - Head Head Exam: Normal Inspection - Eye Eye Exam: Normal Appearance - ENT ENT Exam: Normal Exam - Neck Neck Exam: Normal Inspection - Respiratory Respiratory Exam: Clear to Auscultation - Bilaterally - Cardiovascular Cardiovascular Exam: RRR - GI/Abdominal GI/Abdominal Exam: Normal Bowel Sounds, Non Tender, Non Distended, Soft, No Organomegaly - Rectal Rectal Exam: Deferred - External Exam: Deferred - Extremities Extremities Exam: Normal Inspection - Back Back Exam: Normal Inspection - Neurological Neurological Exam: Alert, Oriented x 3, CN II-XII Intact, No Facial Droop, Speech Intact / Clear, Moves All Extremities Equally - Psychiatric Psychiatric Exam: Normal Affect Assessment and Plan - Patient Problems (1) Alcohol withdrawal syndrome Current Visit: Yes Status: Acute Comment: This is resolved. I think tomorrow we can cut back further on the Librium to twice a day instead of 3 times a day. I did speak with the project planner she is working on getting him an inpatient rehabilitation he is agreeable to that. Family also wanted him to go for inpatient rehabilitation. Code(s): F10.239 - Alcohol dependence with withdrawal, unspecified (2) Hypokalemia Current Visit: Yes Status: Acute Comment: This is resolved. Code(s): E87.6 - Hypokalemia (3) Hypomagnesemia Current Visit: Yes Status: Acute Comment: This is resolved. Code(s): E83.42 - Hypomagnesemia (4) Pancreatitis Current Visit: Yes Status: Acute Comment: His lipase is coming down gradually. I did talk to him about maybe staying another day on clear liquid however he said he can't do it. So I think we'll try advancing to full liquid and repeat his labs hopefully his labs continue to trend down. We will continue with IV fluid at the lower rate for another day consider stopping it tomorrow. Code(s): K85.90 - Acute pancreatitis without necrosis or infection, unspecified Qualifiers: Chronicity: acute Pancreatitis type: alcohol induced Acute pancreatitis complication: no infection or necrosis Qualified Code(s): K85.20 - Alcohol induced acute pancreatitis without necrosis or infection
[2018-12-10] MEDS ORDERED: Lactated Ringers 1,000 ML PRIMARY IV SCH (10:30)
[2018-12-10] MEDS: Lactated Ringers 1,000 ML PRIMARY IV SCH (11:44)
--- NOTE | 2018-12-10 12:10 | OT.PROG ---
Progress Note Progress Note: pt refused therapy services today. he said he was not feeling up to it.
--- NOTE | 2018-12-10 14:36 | PTI REPORT ---
Thank you for the referral of Mina Muñoz. He was seen on 12/07/18 for an inpatient evaluation secondary to alcohol withdrawal and weakness. SUBJECTIVE: The patient is a 33-year-old male. The patient reports that he lives in [place] by himself in a house with stairs. The patient was previously independent. He is currently not working. The patient reports he fell last weekend. The patient's goal is to run again after he gets better at walking. Nursing okayed treatment prior to PT. PAST MEDICAL HISTORY: Past medical history can be found in the patient's medical record. OBJECTIVE FINDINGS: Sensation: The patient demonstrated normal dermatomes to bilateral lower extremities and normal myotomes to bilateral lower extremities. Transfers: The patient requires contact guard assist for sit to stand transfer. Balance: Initial standing balance was fair. Ambulation: The patient was instructed to ambulate 150 feet with contact guard assist x1. The patient demonstrated an unsteady gait pattern and tended to hold onto the hand rail for support. Cognition: The patient demonstrates delayed processing with communication. ASSESSMENT: The patient is a 33-year-old male that presents with generalized weakness and unsteady gait. The patient would benefit from skilled therapy in order to improve functional mobility. The patient's prognosis for therapy is fair. Problem List: Decreased strength Decreased functional mobility Short-Term Goals: To be met by discharge from inpatient: Patient will be independent with all transfers. Patient will be able to ambulate 150 feet independently without loss of balance. Patient will be able to return home per prior level of function. Patient will be able to ascend and descend a flight of stairs independently. Long-Term Goals: To be met following discharge from inpatient: Patient will benefit from outpatient physical therapy. TREATMENT PLAN: Patient will be seen B.I.D during the week and one time per day over the weekend as an inpatient for therapeutic exercise, functional activity, neuromuscular reeducation, and gait training. INITIAL TREATMENT: Treatment today consisted of the initial evaluation followed by the patient being instructed to ambulate 150 feet with contact guard assist x1. The patient tried to use the handrails occasionally for support. The patient was left in chair with chair alarm activated and call light within reach. Nursing was notified that the patient was moved to room 301 per nursing instruction. RADHA
--- NOTE | 2018-12-10 15:17 | PT.PROG ---
Progress Note Progress Note: Patient refused therapy both AM and PM today.
[2018-12-11] MEDS: Lactated Ringers 1,000 ML PRIMARY IV SCH ×3 (00:24→20:37)
[2018-12-11] MEDS: PANTOPRAZOLE 40 MG TABLET PO SCH (07:24)
[2018-12-11] MEDS: Patch Removal PATCH TRANSDERM SCH (08:50)
[2018-12-11] MEDS: Multivitamin Tab 1 TAB PO SCH (09:06)
[2018-12-11] MEDS: ChlordiazePOXIDE Cap 25 MG CAPSULE PO SCH (09:06)
[2018-12-11] MEDS: Thiamine Tab 100 MG TAB PO SCH (09:07)
[2018-12-11] MEDS: NICOTINE 21 MG /DAY PATCH TRANSDERM SCH (09:07)
[2018-12-11] MEDS: DOCUSATE 100 MG CAPSULE PO SCH ×2 (09:07→20:35)
--- NOTE | 2018-12-11 10:46 | PDOC(PROG) ---
Interval History: Patient is doing well no abdominal pain still elevated lipase. Objective : Data - Labs CBC and BMP: 12/09/18 04:30 12/10/18 05:00 Objective : Exam - General General Appearance: No Acute Distress, Cooperative - Respiratory Respiratory Exam: Clear to Auscultation - Bilaterally, Breathing Non Labored, Normal To Percussion, Normal to Percussion and Palpation - Cardiovascular Cardiovascular Exam: RRR, No Murmur, No Clicks, No Gallops, No Rubs, PMI Non- Displaced - GI/Abdominal GI/Abdominal Exam: Normal Bowel Sounds, Non Tender, Non Distended, Soft, No Masses, No Hepatomegaly, No Splenomegaly, No Organomegaly Assessment and Plan - Patient Problems (1) Hypokalemia Current Visit: Yes Status: Acute Comment: Continue replacement continue lactated Ringer's unable to draw blood today Code(s): E87.6 - Hypokalemia (2) Hypomagnesemia Current Visit: Yes Status: Acute Comment: Replaced Code(s): E83.42 - Hypomagnesemia (3) Alcohol withdrawal syndrome Current Visit: Yes Status: Acute Comment: We will try taking the patient off Librium to see how he does scheduled to go to rehabilitation in [place] Code(s): F10.239 - Alcohol dependence with withdrawal, unspecified (4) Pancreatitis Current Visit: Yes Status: Acute Comment: Still elevated lipase and recheck labs in a.m. continue nothing by mouth patient agrees Code(s): K85.90 - Acute pancreatitis without necrosis or infection, unspecified Qualifiers: Chronicity: acute Pancreatitis type: alcohol induced Acute pancreatitis complication: no infection or necrosis Qualified Code(s): K85.20 - Alcohol induced acute pancreatitis without necrosis or infection
--- NOTE | 2018-12-11 11:12 | OT.PROG ---
Progress Note Progress Note: S: pt stated that he was willing today to come down for therapy. O: tx consisted of wall pushups x15, standing marches x15, hip extension and abduction x 15, UBE x10 min. A: pt tolerated session well. pt is overall doing fair. balance and coordination is improving. P: continue POC
--- NOTE | 2018-12-11 11:52 | PT.PROG ---
Progress Note Progress Note: S. Patient stated that he would go to the therapy gym this morning. O. Patient ambulated 300 feet around the nurses station then descended the stairs from the 3rd floor. then used the bike x 10 minutes and ambulated 175 feet back to his room where he was left with alarm and call light. A. Patient tolerated therapy well, he continues to have weakness however is making gains with balance at this time. Patient would benefit from skilled therapy to increase strength at this time. P. Continue POC.
--- NOTE | 2018-12-11 15:20 | PT.PROG ---
Progress Note Progress Note: Patient refused therapy this afternoon.
[2018-12-11] MEDS: KETOROLAC 15 MG/1 ML VIAL IVP PRN (21:20)
[2018-12-12] MEDS: Lactated Ringers 1,000 ML PRIMARY IV SCH ×3 (04:14→23:55)
[2018-12-12] MEDS ORDERED: Magnesium Sulfate 2gm (Premix) 2 GM/50 ML BAG IV ONE (07:22)
[2018-12-12] MEDS: PANTOPRAZOLE 40 MG TABLET PO SCH (07:56)
[2018-12-12] MEDS: NICOTINE 21 MG /DAY PATCH TRANSDERM SCH (08:54)
[2018-12-12] MEDS: Patch Removal PATCH TRANSDERM SCH (08:54)
[2018-12-12] MEDS: Thiamine Tab 100 MG TAB PO SCH (08:55)
[2018-12-12] MEDS: DOCUSATE 100 MG CAPSULE PO SCH ×2 (08:55→21:04)
[2018-12-12] MEDS: Multivitamin Tab 1 TAB PO SCH (08:55)
--- NOTE | 2018-12-12 10:44 | OT.PROG ---
Progress Note Progress Note: pt refused OT services this AM.
--- NOTE | 2018-12-12 10:48 | PDOC(PROG) ---
Interval History: Much better today and lipases lower patient has no pain would like to start some food. Did receive a touch of Ativan last night but none today no chest pain nausea or vomiting Objective : Data - Labs CBC and BMP: 12/09/18 04:30 12/10/18 05:00 Objective : Exam - General General Appearance: Cooperative - Respiratory Respiratory Exam: Clear to Auscultation - Bilaterally, Breathing Non Labored, Normal To Percussion, Normal to Percussion and Palpation - Cardiovascular Cardiovascular Exam: RRR, No Murmur, No Clicks, No Gallops, No Rubs, PMI Non- Displaced - GI/Abdominal GI/Abdominal Exam: Normal Bowel Sounds, Non Tender, Non Distended, Soft, No Masses, No Hepatomegaly, No Splenomegaly, No Organomegaly - Neurological Neurological Exam: Alert, Oriented x 3, Reflexes Normal, Normal Gait, CN II-XII Intact, No Facial Droop, Moves All Extremities Equally Assessment and Plan - Patient Problems (1) Hypokalemia Current Visit: Yes Status: Acute Comment: Replaced Code(s): E87.6 - Hypokalemia (2) Hypomagnesemia Current Visit: Yes Status: Acute Comment: Replaced Code(s): E83.42 - Hypomagnesemia (3) Alcohol withdrawal syndrome Current Visit: Yes Status: Acute Comment: Improved did not score today no Ativan needed Code(s): F10.239 - Alcohol dependence with withdrawal, unspecified (4) Pancreatitis Current Visit: Yes Status: Acute Comment: Improving lipase 1400 nor abdominal pain advance diet continue IV fluids Code(s): K85.90 - Acute pancreatitis without necrosis or infection, unspecified Qualifiers: Chronicity: acute Pancreatitis type: alcohol induced Acute pancreatitis complication: no infection or necrosis Qualified Code(s): K85.20 - Alcohol induced acute pancreatitis without necrosis or infection
--- NOTE | 2018-12-12 15:42 | OT.PROG ---
Progress Note Progress Note: S: pt stated that he is doing better each day. He reported being sick at home for two days before coming to hospital. O: pt was seen in his room and completed bed mobility INd. He completed transfer down to therapy INd, but very cautious with while he ambulated. He completed sit to stands x10 with 6# ball, stood on air ex to enhance his overall balance 2 min x2, before returning to his room. He was left upright in his room and nursing notified. A: pt participated well, but does show low activity tolerance. He may continue to benefit from therapy to increase his overall strength as he awaits transfer to rehab. P: continue per POC.
--- NOTE | 2018-12-12 16:42 | PT.PROG ---
Progress Note Progress Note: S. Patient agreed to go to the therapy gym this afternoon. O. Patient ambulated 175 feet to the therapy gym where he used the nu-step x 10 minutes then performed seated long arc quads, heel toe raises, ball squeezes, clam shells all x 10 bilaterally. Patient ambulated 175 feet back to his room where he was left with call light. A. Patient continues to struggle with weakness however is making gains with mobility and endurance. P. Continue POC.
[2018-12-13 05:40] LABS: BLOOD UREA NITROGEN 6 mg/dL (7-22); BUN/CREATININE RATIO 6.66 (6-20); SERUM ALBUMIN 3.3 g/dL (3.5-4.8)
[2018-12-13 06:00] LABS: LIPASE 2063 IU/L (23-300)
[2018-12-13] MEDS: Lactated Ringers 1,000 ML PRIMARY IV SCH ×2 (08:18→16:26)
[2018-12-13] MEDS: Multivitamin Tab 1 TAB PO SCH (08:18)
[2018-12-13] MEDS: DOCUSATE 100 MG CAPSULE PO SCH ×2 (08:18→20:18)
[2018-12-13] MEDS: PANTOPRAZOLE 40 MG TABLET PO SCH (08:18)
[2018-12-13] MEDS: Thiamine Tab 100 MG TAB PO SCH (08:18)
[2018-12-13] MEDS: Patch Removal PATCH TRANSDERM SCH (08:20)
[2018-12-13] MEDS: NICOTINE 21 MG /DAY PATCH TRANSDERM SCH (08:21)
--- NOTE | 2018-12-13 12:41 | PDOC(PROG) ---
Interval History: No complaints no abdominal pain Objective : Data - Labs CBC and BMP: 12/09/18 04:30 12/13/18 04:15 Objective : Exam - General General Appearance: Cooperative - Respiratory Respiratory Exam: Clear to Auscultation - Bilaterally, Breathing Non Labored, Normal To Percussion, Normal to Percussion and Palpation - Cardiovascular Cardiovascular Exam: RRR, No Murmur, No Clicks, No Gallops, No Rubs, PMI Non- Displaced - GI/Abdominal GI/Abdominal Exam: Normal Bowel Sounds, Non Tender, Non Distended, Soft, No Masses, No Hepatomegaly, No Splenomegaly, No Organomegaly Assessment and Plan - Patient Problems (1) Alcohol withdrawal syndrome Current Visit: Yes Status: Acute Comment: I believe this is stable at present time he is not requiring any Ativan Code(s): F10.239 - Alcohol dependence with withdrawal, unspecified (2) Hypokalemia Current Visit: Yes Status: Resolved Code(s): E87.6 - Hypokalemia (3) Hypomagnesemia Current Visit: Yes Status: Resolved Code(s): E83.42 - Hypomagnesemia (4) Pancreatitis Current Visit: Yes Status: Acute Comment: His lipase went up we restarted to put patient on nothing by mouth the good news is he has no pain. This might be chronically elevated in this patient we will try to another day of nothing by mouth look at his numbers and feed him if he does not have any pain that the plan is to for him to go to [facility] believe that a rehabilitation facility Code(s): K85.90 - Acute pancreatitis without necrosis or infection, unspecified Qualifiers: Chronicity: acute Pancreatitis type: alcohol induced Acute pancreatitis complication: no infection or necrosis Qualified Code(s): K85.20 - Alcohol induced acute pancreatitis without necrosis or infection
--- NOTE | 2018-12-13 16:10 | PT.PROG ---
Progress Note Progress Note: S. Patient stated he is "bummed out" today. however agreed to go for a walk. O. Patient ambulated 8 laps around the nurses station and back to his room where he was left in bed with call light. A. Patient tolerated ambulation well, he ambulates with stand by guard assist. P. Continue POC.
[2018-12-14] MEDS: Lactated Ringers 1,000 ML PRIMARY IV SCH ×3 (01:31→19:24)
[2018-12-14] MEDS: PANTOPRAZOLE 40 MG TABLET PO SCH (07:08)
[2018-12-14] MEDS: Multivitamin Tab 1 TAB PO SCH (09:46)
[2018-12-14] MEDS: NICOTINE 21 MG /DAY PATCH TRANSDERM SCH (09:46)
[2018-12-14] MEDS: Thiamine Tab 100 MG TAB PO SCH (09:46)
[2018-12-14] MEDS: DOCUSATE 100 MG CAPSULE PO SCH ×2 (09:47→20:26)
[2018-12-14] MEDS: Patch Removal PATCH TRANSDERM SCH (10:15)
--- NOTE | 2018-12-14 11:15 | PDOC(PROG) ---
Interval History: Patient is doing great no complaints no chest pain nausea vomiting or abdominal pain he is very hungry. Objective : Data - Labs CBC and BMP: 12/09/18 04:30 12/13/18 04:15 Objective : Exam - General General Appearance: No Acute Distress, Cooperative - Head Head Exam: Normal Inspection, Normocephalic, Atraumatic - Neck Neck Exam: Normal Inspection, Full ROM, No Tenderness - Respiratory Respiratory Exam: Clear to Auscultation - Bilaterally, Breathing Non Labored, Normal To Percussion, Normal to Percussion and Palpation - Cardiovascular Cardiovascular Exam: RRR, No Murmur, No Clicks, No Gallops, No Rubs, PMI Non- Displaced - GI/Abdominal GI/Abdominal Exam: Normal Bowel Sounds, Non Tender, Non Distended, Soft, No Masses, No Hepatomegaly, No Splenomegaly, No Organomegaly Assessment and Plan - Patient Problems (1) Alcohol withdrawal syndrome Current Visit: Yes Status: Acute Comment: Resolved Code(s): F10.239 - Alcohol dependence with withdrawal, unspecified (2) Hypokalemia Current Visit: Yes Status: Resolved Comment: Resolved Code(s): E87.6 - Hypokalemia (3) Hypomagnesemia Current Visit: Yes Status: Resolved Comment: Resolved Code(s): E83.42 - Hypomagnesemia (4) Pancreatitis Current Visit: Yes Status: Acute Comment: Resolved patient has no pain lipase down to 900 we will start an advanced diet if he remains pain free and probably be 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
--- NOTE | 2018-12-14 12:12 | PT.PROG ---
Progress Note Progress Note: S. Patient stated he would do exercises in his room this morning. O. Patient ambulated 150 feet around the nurses station then performed seated exercises in the form of; long arc quads, heel toe raises, pillow squeezes, clam shells, resisted knee flexion all x 15 bilaterally with green thera bands. Patient performed sit to stands x 10 and was left in his chair with call light. A. Patient tolerated therapy well, he would continue to benefit from skilled therapy to increase strength and endurance at this time. P. Continue POC.
--- NOTE | 2018-12-14 13:29 | OT.PROG ---
Progress Note Progress Note: S: pt reported that he wants to go home before he goes to a rehab facility. O: pt completed Ue exercises in room with GTB in all planes x15 with BUE to increase strength and overall activity tolerance. A: pt participated well in all his exercises and would continue to benefit from therapy to improve his strength. P: continue per POC.
--- NOTE | 2018-12-14 17:03 | OT.PROG ---
Progress Note Progress Note: Occupational Therapy S: Pt. reports that he is feeling better. O: Today pt. was seen for a cognitive screening with the Ziyad Cognitive Assessment (MOCA). His scores are as follows: Visuospatial/executive: 2/5 Namin/3 Attention: 6/6 Language: 2/3 Abstraction: 0/2 Delayed Recall: 2/5 Orientation: 4/6 Total Score: 19/30 Mild Cognitive Impairment A: Pt. was able to sit upright to participate in cognitive screening. He did require additional time for processing and repeated directions on occasions. Pt. specifically struggled with higher level abstraction, delayed recall, and orientation. Pt. seemed to be self-aware of his current cognitive abilities. Overall a score of 19/30 indicates a mild cognitive impairment. P: Continue POC. BERENICE Cline
[2018-12-14] MEDS: KETOROLAC 15 MG/1 ML VIAL IVP PRN (23:55)
[2018-12-15] MEDS: Lactated Ringers 1,000 ML PRIMARY IV SCH ×2 (04:08→12:00)
[2018-12-15] MEDS: PANTOPRAZOLE 40 MG TABLET PO SCH (07:20)
[2018-12-15] MEDS: Multivitamin Tab 1 TAB PO SCH (09:00)
[2018-12-15] MEDS: Thiamine Tab 100 MG TAB PO SCH (09:00)
[2018-12-15] MEDS: DOCUSATE 100 MG CAPSULE PO SCH (09:00)
[2018-12-15] MEDS: Patch Removal PATCH TRANSDERM SCH (09:00)
[2018-12-15] MEDS: NICOTINE 21 MG /DAY PATCH TRANSDERM SCH (09:00)
--- NOTE | 2018-12-15 11:34 | PT.PROG ---
Progress Note Progress Note: Attempted physical therapy; pt refused and stated that he is waiting for the doctor to come so that he can discharge.
--- NOTE | 2018-12-15 11:56 | DCSUMMARY ---
Hospitalization Summary Hospital Course: Final Discharge Diagnosis: Current Visit Problems Problem Status Onset Code Alcohol abuse Chronic F10.10 Hypokalemia Resolved E87.6 Hypomagnesemia Resolved E83.42 Alcohol withdrawal syndrome Acute F10.239 Pancreatitis Acute K85.90 Delirium tremens Acute F10.231 Hypokalemia Acute E87.6 Hypomagnesemia Acute E83.42 Alcohol withdrawal syndrome Acute F10.239 Elevated pancreatic enzyme Acute R74.8 Elevated liver function tests Acute R94.5 Diagnostic Data, Laboratory Data, and Procedures of Signifigance: CBC and BMP 12/09/18 04:30 1619 04:15 History and Physical pertinent to Admission: Past Medical History Medical History: 1. Chronic alcohol abuse. 2. low back pain, per history, sciatica Surgical History: 1. Appendectomy Pertinent Family History: No family history of heart disease or diabetes. Past Social History: Smokes, drinks, has 2 children and is . Currently unemployed. lives in an apartment in [place], [place]. Tobacco Use: Current Every Day Smoker In the Past 12 Months, Have Used or Abuse Any of the F Course of Hospitalization: Is a very pleasant 33-year-old gentleman with a long history of chronic alcoholism, he drinks a fifth of vodka a day. He has been in inpatient rehabilitation in [place] started drinking again within 2 months of the program he has been drinking for the last 10 years also has had multiple episodes of alcohol withdrawal and seizures from alcohol with withdrawal with the tongue lacerations as well and was admitted for alcohol withdrawal seizures and pancreatitis. Lipase level down to 900 patient is absolutely no pain his diet was advanced tolerating food regular diet with no pain I discussed the case with Dr. mary Last he stated that the is no not necessary to follow lipase level instead follow the patient's pain if he tolerates his food without pain he was able to be discharged. He is very anxious this morning because he wants to go home but is now more calm. I told him to continue taking his Prilosec at home and a multivitamin he will buy this [id number]. I discussed the case with his mother with his permission I told him that the pancreatitis could definitely come back especially the chances of developing chronic pancreatitis and long- standing alcohol users are higher than normal population she understands this but at present time it is resolved we did get a CAT scan of his abdomen and also an MRI while he was in the hospital he will be taken at home and spending today with his mother and then most likely a flying to [place] tomorrow morning with his lead cashier discussed with nursing on agreement. The patient will be discharged home he states that he would not wait any longer he will go home no matter what even if the flight is on Monday he will like to go home today to get his things ready. He is very calm and cooperative On the date of discharge, the patient was examined: Gen.: No acute distress, alert, nontoxic Heart: Regular rate and rhythm, no murmurs, clicks, gallops, or rubs Lungs: Clear to auscultation bilaterally, breathing is nonlabored Abdomen/GI: Normal tones on auscultation, soft, nontender, nondistended Musculoskeletal/extremities: No clubbing, cyanosis, or edema Vitals reviewed and are listed below Assessment and Plan: 1. As per discharge assessments above 2. Disposition: Home with mother then to rehabilitation with [facility] [place] for inpatient rehabilitation for 8 months 3. Condition on discharge, stable and improved. 4. Diet: regular diet 5. Activities: resume normal activities 6. Follow-Up: 1. PCP 2. 7. Medications at the Time of Discharge: Home Medications Medication Instructions Recorded Confirmed Multivitamin Tab [Thera Tab] 1 tab PO DAILY tab 12/15/18 Thiamine HCl [Vitamin B-1] 100 mg PO DAILY tab 12/15/18 8. Time, care, counseling and coordination of care for this discharge is greater than 30 minutes. Exam - Vitals Vital Signs: Vital Signs Temperature 97.3 F Temperature Source Temporal Artery Scan Pulse Rate [Telemetry] 71 Pulse Rate [Apical] 88 Pulse Rate [Pulse Oximeter] 94 Pulse Rate [right] 77 Pulse Rate 61 Respiratory Rate 18 Blood Pressure [Right Arm] 100/58 Blood Pressure [Left Arm] 120/76 Blood Pressure 109/62 Pulse Ox [right] 99 Pulse Ox 99 Oxygen Flow Rate [right] 2 Oxygen Flow Rate 99 Oxygen Delivery Method [right] Room Air Oxygen Delivery Method Room Air Height 6 ft 1 in Weight 179 lb 3.2 oz Patient Problems - Patient Problem List (1) Alcohol withdrawal syndrome Current Visit: Yes Status: Acute Code(s): F10.239 - Alcohol dependence with withdrawal, unspecified Category: Medical (2) Hypokalemia Current Visit: Yes Status: Resolved Code(s): E87.6 - Hypokalemia Category: Medical (3) Hypomagnesemia Current Visit: Yes Status: Resolved Code(s): E83.42 - Hypomagnesemia Category: Medical (4) Pancreatitis Current Visit: Yes Status: Acute Code(s): K85.90 - Acute pancreatitis w ithout necrosis or infection, unspecified Qualifiers: Chronicity: acute Pancreatitis type: alcohol induced Acute pancreatitis complication: no infection or necrosis Qualified Code(s): K85.20 - Alcohol induced acute pancreatitis without necrosis or infection Category: Medical
[2018-12-15 12:11] VITALS: BP 123/84; RESP 16; TEMP 97.5; O2SAT 100
== END 2018-12-15 12:58 | disposition home or self-care (01) | DRG 439 ==
LOC: ER 21:52 → ICU 23:21 → MED/SURG 12-04 19:23 → ICU 12-05 09:27 → MED/SURG 12-07 07:09
PROVIDERS: ADMIT Family Medicine; ATTEND Family Medicine